=== PATIENT | female | born 1950 | race Caucasian/White ===

== ENCOUNTER → 2018-01-02 | Day surgery (SDC) | payer MEDICARE ==
[2017-12-28 11:42] VITALS: BMI 21.6
[~2018-01-02] MED LIST: DEXAMETHASONE SOD PHOSPHATE 10 MG/ML 1 ML VIAL IV ONE; LACTATED RINGERS 1,000 ML IV SCH; LIDOCAINE 1% 20 ML VIAL (10MG/ML) FOR IV START INTRADERMA PRN; LIDOCAINE 1% INJ 10MG/ML (20 ML MDV) ONE; LIDOCAINE 1%-EPI 1:100,000 20 ML VIAL SQ ONE; MIDAZOLAM 2 MG/2 ML VIAL IV PRN; MIDAZOLAM 2 MG/2 ML VIAL ONE; ONDANSETRON 4 MG/2 ML VIAL IVP ONE; PROPOFOL 10 MG/ML 20 ML VIAL IV ONE; SUCCINYLCHOLINE CHLORIDE 100 MG/5 ML SYR IV ONE; ceFAZolin 1,000 MG in DEXTROSE/WATER 1 50ML.BAG IV ONE; fentaNYL (PF) 50 MCG/ML 2 ML AMP IV PRN; fentaNYL (PF) 50 MCG/ML 2 ML AMP ONE; oxyCODONE-APAP 10-325MG 1 EACH TAB PO ONE
[2018-01-02] MEDS: HYDROmorphone 1 MG/ML 1 ML SYRINGE IVP ONE ×2 (13:51→15:57)
--- NOTE | 2018-01-02 15:25 | P.OP ---
Date of Procedure: 01/02/18 Preoperative Diagnosis: Right nasal defect secondary to previous Mohs surgery Postoperative Diagnosis: Same Procedure(s) Performed: Right nasofacial reconstruction with local advancement rotation flap reconstructionright nasofacial flap with primary defect 2.5 x 2.5 cm and secondary defect 2.5 x 4.3 cm Anesthesia: LENORE Surgeon: Prasanna Cox Estimated Blood Loss (ml): 5 Pathology: none sent Condition: stable Disposition: PACU Indications for Procedure: This 67-year-old white female who last week had Mohs surgery for basal cell carcinoma right nasal alar with reported negative margins. She has a defect that needs to be reconstructed. Operative Findings: Approximately 2.5 cm defect right nasal alar and medial right cheek down to the perichondrium which has mild granulation healing Description of Procedure: The patient was brought in the operative suite and placed in a supine position. The patient underwent induction of general anesthesia with oral endotracheal intubation without difficulty. The patient was prepped and draped in usual aseptic fashion. The wound was evaluated and it was elected to use a local flap reconstruction rather than full-thickness skin graft due to a better vascular supply with the patient's history of smoking and possibility that she would not participate with smoking cessation with the skin graft as well as a better thickness for reconstruction. Therefore a right nasal facial flap was designed with incision superior and lateral to the defect with the lateral incision being parallel to the nasolabial crease. This was raised in the subcutaneous fat layer down to the muscular layer with a thickness the same as the defect. This was then rotated and advanced into position. The deep portion of this was sutured into the nasal facial groove with 5-0 Vicryl suture in order to re-create this groove. The deep layers were then closed with inverted interrupted 5-0 Vicryl suture skin closed with simple interrupted and running locking 5-0 Prolene suture. Bacitracin ointment and sterile dressings were placed. The patient was allowed to emerge from general anesthesia having tolerated procedure well was excised in the operative suite and transferred postoperative recovery area in satisfactory condition. The flap had excellent vascular supply and excellent capillary refill at the conclusion of the case.
[2018-01-02 15:34] VITALS: TEMP 97
[2018-01-02 16:17] VITALS: RESP 18
[2018-01-02 16:55] VITALS: BP 151/88; PULSE 81
== END | disposition home or self-care (01) ==
LOC: OR 11:37
PROVIDERS: ATTEND Otolaryngology
DX: Z42.8 Encounter for other plastic and reconstructive surgery following medical procedure or healed injury (principal); Z85.828 Personal history of other malignant neoplasm of skin; M19.90 Unspecified osteoarthritis, unspecified site; J44.9 Chronic obstructive pulmonary disease, unspecified; M79.7 Fibromyalgia; F17.200 Nicotine dependence, unspecified, uncomplicated; Z90.2 Acquired absence of lung [part of]; Z79.1 Long term (current) use of non-steroidal anti-inflammatories (NSAID); Z79.891 Long term (current) use of opiate analgesic
CPT/HCPCS: 14060; J2250; J1100; J2405; J2001; J3010; J1170; J0690; J0330; J2704

== ENCOUNTER 2018-05-15 20:38 | Inpatient (IN) | payer MEDICARE ==
[2018-05-15] MEDS ORDERED: SODIUM CHLORIDE 0.9% 500 ML 500 ML IV STA (21:22)
[2018-05-15] MEDS ORDERED: SODIUM CHLORIDE 0.9% 1,000 ML IV ONE ×2 (21:28→23:58)
--- NOTE | 2018-05-15 21:28 | ED ---
General Adult HPI - General Chief complaint: Syncope Stated complaint: Syncope, fall, htn Time Seen by Provider: 05/15/18 20:40 Source: patient, EMS, RN notes reviewed Mode of arrival: EMS Limitations: no limitations - History of Present Illness Initial comments: This is a 68-year-old female presents emergency Department complaining of having passed out. Patient states she felt hot and dizzy after she stood up and went to her friend's house and she passed out she thinks but she doesn't remember it. According to EMS that his story that he received that she passed out and hit the right side of her head. Patient currently complains of a headache patient denies any neck pain denies any numbness or weakness. Patient states she still is dizzy. Patient denies any chest pain palpitations difficulty breathing shortness of breath per patient denies any upper extremity pain. Patient denies any lower cavity pain. Patient denies any back pain. Patient denies abdominal pain. Patient states she does not remember having ever passed out in the past - Related Data Home Medications Medication Instructions Recorded Confirmed Meloxicam [Mobic] 7.5 mg PO QAM 12/28/17 01/02/18 oxyCODONE-APAP 10-325MG [Percocet 1 tab PO Q12H PRN 12/28/17 01/02/18 10-325 mg] Allergies Allergy/AdvReac Type Severity Reaction Status Date / Time No Known Allergies Allergy Verified 01/02/18 12:51 Review of Systems ROS Statement: Those systems with pertinent positive or pertinent negative responses have been documented in the HPI. ROS Other: All systems not noted in ROS Statement are negative. Past Medical History Past Medical History: Cancer, COPD, Fibromyalgia, Musculoskeletal Disorder Additional Past Medical History / Comment(s): Current skin cancer on nose, hx stage 3 colon cancer and stage 4 lung cancer, scoliosis and degenerative disc disease with bulging discs in back, chronic pain. Hx broken neck that healed on it's own. History of Any Multi-Drug Resistant Organisms: None Reported Past Surgical History: Cholecystectomy, Orthopedic Surgery Additional Past Surgical History / Comment(s): Partial hysterectomy, right rotator cuff repair, left upper lobe of lung removed, bowel surgery due to cancer. Past Anesthesia/Blood Transfusion Reactions: No Reported Reaction Past Psychological History: No Psychological Hx Reported Smoking Status: Current every day smoker Past Alcohol Use History: None Reported Past Drug Use History: None Reported - Past Family History Father Family Medical History: Cancer Additional Family Medical History / Comment(s): Leukemia Brother(s) Family Medical History: Cancer Additional Family Medical History / Comment(s): Colon cancer General Exam - General Exam Comments Initial Comments: GENERAL: Patient is well-developed and well-nourished. Patient is nontoxic and well- hydrated and is in mild distress. Patient has some scalp tenderness in the right parietal region. No bleeding or hematoma noted ENT: Neck is soft and supple. No significant lymphadenopathy is noted. Oropharynx is clear. Dry mucous membranes. Neck has full range of motion without eliciting any pain. EYES: The sclera were anicteric and conjunctiva were pink and moist. Extraocular movements were intact and pupils were equal round and reactive to light. Eyelids were unremarkable. PULMONARY: Unlabored respirations. Good breath sounds bilaterally. No audible rales rhonchi or wheezing was noted. CARDIOVASCULAR: There is a regular rate and rhythm without any murmurs gallops or rubs. ABDOMEN: Soft and nontender with normal bowel sounds. No palpable organomegaly was noted. There is no palpable pulsatile mass. SKIN: Skin is clear with no lesions or rashes and otherwise unremarkable. NEUROLOGIC: Patient is alert and oriented x3. Cranial nerves II through XII are grossly intact. Motor and sensory are also intact. Normal speech, volume and content. Symmetrical smile. MUSCULOSKELETAL: Normal extremities with adequate strength and full range of motion. No lower extremity swelling or edema. No calf tenderness. LYMPHATICS: No significant lymphadenopathy is noted PSYCHIATRIC: Normal psychiatric evaluation. Limitations: no limitations Course Vital Signs 05/15/18 05/15/18 05/15/18 20:38 21:44 23:03 Temperature 97.5 F L Pulse Rate 62 60 61 Respiratory 16 16 16 Rate Blood Pressure 99/51 133/61 146/71 O2 Sat by Pulse 99 100 Oximetry Medical Decision Making - Medical Decision Making EKG shows sinus bradycardia 52 bpm [place] interval is 186 QRS is 86 QT interval is 466 QTC is 433. Patient's EKG shows no ST segment elevation or depression. CT of her head and neck show no acute abnormality. Patient was still feeling dizzy while she was in the emergency department did not feel comfortable going home. Spoke with Dr. Benjamin agreed to admit the patient admitted the patient. - Lab Data Result diagrams: 05/15/18 20:54 05/15/18 20:54 Lab Results 05/15/18 05/15/18 05/15/18 Range/Units 20:54 20:54 20:54 WBC 7.9 (3.8-10.6) k/uL RBC 3.71 L (3.80-5.40) m/uL Hgb 11.3 L (11.4-16.0) gm/dL Hct 34.8 (34.0-46.0) % MCV 93.8 (80.0-100.0) fL MCH 30.5 (25.0-35.0) pg MCHC 32.5 (31.0-37.0) g/dL RDW 12.9 (11.5-15.5) % Plt Count 295 (150-450) k/uL Neutrophils % 40 % Lymphocytes % 50 % Monocytes % 4 % Eosinophils % 3 % Basophils % 0 % Neutrophils # 3.1 (1.3-7.7) k/uL Lymphocytes # 4.0 (1.0-4.8) k/uL Monocytes # 0.3 (0-1.0) k/uL Eosinophils # 0.3 (0-0.7) k/uL Basophils # 0.0 (0-0.2) k/uL PT (9.0-12.0) sec INR (<1.2) APTT (22.0-30.0) sec Sodium 133 L (137-145) mmol/L Potassium 4.0 (3.5-5.1) mmol/L Chloride 105 (98-107) mmol/L Carbon Dioxide 24 (22-30) mmol/L Anion Gap 4 mmol/L BUN 16 (7-17) mg/dL Creatinine 0.92 (0.52-1.04) mg/dL Est GFR (CKD-EPI)AfAm 74 (>60 ml/min/1.73 sqM) Est GFR (CKD-EPI)NonAf 64 (>60 ml/min/1.73 sqM) Glucose 119 H (74-99) mg/dL Calcium 8.3 L (8.4-10.2) mg/dL Magnesium 2.0 (1.6-2.3) mg/dL Total Bilirubin 0.2 (0.2-1.3) mg/dL AST 29 (14-36) U/L ALT 37 (9-52) U/L Alkaline Phosphatase 38 (38-126) U/L Total Creatine Kinase 110 (30-135) U/L CK-MB (CK-2) 1.0 (0.0-2.4) ng/mL CK-MB (CK-2) Rel Index 0.9 Troponin I <0.012 (0.000-0.034) ng/mL Total Protein 6.0 L (6.3-8.2) g/dL Albumin 3.5 (3.5-5.0) g/dL 05/15/18 Range/Units 20:54 WBC (3.8-10.6) k/uL RBC (3.80-5.40) m/uL Hgb (11.4-16.0) gm/dL Hct (34.0-46.0) % MCV (80.0-100.0) fL MCH (25.0-35.0) pg MCHC (31.0-37.0) g/dL RDW (11.5-15.5) % Plt Count (150-450) k/uL Neutrophils % % Lymphocytes % % Monocytes % % Eosinophils % % Basophils % % Neutrophils # (1.3-7.7) k/uL Lymphocytes # (1.0-4.8) k/uL Monocytes # (0-1.0) k/uL Eosinophils # (0-0.7) k/uL Basophils # (0-0.2) k/uL PT 10.3 (9.0-12.0) sec INR 1.0 (<1.2) APTT 22.0 (22.0-30.0) sec Sodium (137-145) mmol/L Potassium (3.5-5.1) mmol/L Chloride (98-107) mmol/L Carbon Dioxide (22-30) mmol/L Anion Gap mmol/L BUN (7-17) mg/dL Creatinine (0.52-1.04) mg/dL Est GFR (CKD-EPI)AfAm (>60 ml/min/1.73 sqM) Est GFR (CKD-EPI)NonAf (>60 ml/min/1.73 sqM) Glucose (74-99) mg/dL Calcium (8.4-10.2) mg/dL Magnesium (1.6-2.3) mg/dL Total Bilirubin (0.2-1.3) mg/dL AST (14-36) U/L ALT (9-52) U/L Alkaline Phosphatase (38-126) U/L Total Creatine Kinase (30-135) U/L CK-MB (CK-2) (0.0-2.4) ng/mL CK-MB (CK-2) Rel Index Troponin I (0.000-0.034) ng/mL Total Protein (6.3-8.2) g/dL Albumin (3.5-5.0) g/dL Disposition Clinical Impression: Syncope and collapse, Dizziness Disposition: ADMITTED IP TO THIS HOSP Referrals: Best Blanton DO [Primary Care Provider] - 1-2 days Time of Disposition: 23:57
[2018-05-15 21:42] LABS: Basophils % (A) 0 %; Eosinophils # (A) 0.3 k/uL (0-0.7); Eosinophils % (A) 3 %; HCT 34.8 % (34.0-46.0); HGB 11.3 gm/dL (11.4-16.0); Lymphocytes % (A) 50 %; MCH 30.5 pg (25.0-35.0); MCHC 32.5 g/dL (31.0-37.0); MCV 93.8 fL (80.0-100.0); Mean Platelet Volume 7.6; Monocytes # (A) 0.3 k/uL (0-1.0); Monocytes % (A) 4 %; Neutrophils # (A) 3.1 k/uL (1.3-7.7); Neutrophils % (A) 40 %; Platelet Count 295 k/uL (150-450); RBC 3.71 m/uL (3.80-5.40); RDW 12.9 % (11.5-15.5); WBC 7.9 k/uL (3.8-10.6)
--- NOTE | 2018-05-15 21:50 | CT ---
EXAMINATION TYPE: CT brain maci ralph DATE OF EXAM: 05/15/2018 COMPARISON: None HISTORY: fall Headache. Neck pain. CT DLP: 1249.7 mGycm Automated exposure control for dose reduction was used. TECHNIQUE: CT scan of the head and cervical spine are performed without contrast. FINDINGS: Ventricles have normal size. There is no mass effect nor midline shift. There is no sign of intracranial hemorrhage. Calvarium is intact. The cervical vertebra have fairly normal alignment. There is mild spurring of the endplates. Skull base is intact. There is no evidence of a fracture. Facet joints are intact. Head is tilted sli ghtly to the left side. IMPRESSION: Negative CT scan of the brain. Mild spondylotic changes in the cervical spine. No fracture.
[2018-05-15 21:53] LABS: Albumin 3.5 g/dL (3.5-5.0); Calcium 8.3 mg/dL (8.4-10.2); Total Bilirubin 0.2 mg/dL (0.2-1.3)
[2018-05-15 21:54] LABS: Creatine Kinase 110 U/L (30-135)
[2018-05-15 22:00] LABS: Prothrombin Time 10.3 sec (9.0-12.0)
[2018-05-15 22:08] LABS: Troponin I <0.012 ng/mL (0.000-0.034)
--- NOTE | 2018-05-15 22:22 | XR ---
EXAMINATION TYPE: XR chest 2V DATE OF EXAM: 05/15/2018 COMPARISON: March 29, 2008 HISTORY: COPD. Chest pain TECHNIQUE: Frontal and lateral views of the chest are obtained. FINDINGS: There is no heart failure nor confluent pneumonic infiltrate. There is mild pulmonary hype rinflation. There is no pleural effusion. Bony thorax is intact. Thoracic aorta is atheromatous. IMPRESSION: There is probably COPD. No acute lung disease. No change.
[2018-05-15] MEDS ORDERED: IBUPROFEN 400 MG TAB PO STA (22:35)
[2018-05-16] MEDS ORDERED: ACETAMINOPHEN TAB 325 MG TAB PO STA (04:04)
[2018-05-16 06:34] VITALS: BMI 21.6
[2018-05-16] MEDS ORDERED: MELOXICAM 7.5 MG TAB PO SCH (09:15)
[2018-05-16] MEDS: oxyCODONE-APAP 10-325MG 1 EACH TAB PO PRN ×2 (09:25→17:23)
[2018-05-16 15:25] VITALS: BP 133/68; PULSE 68; RESP 18; TEMP 97.7
[2018-05-16] MEDS ORDERED: ENOXAPARIN 40 MG/0.4 ML SYRINGE SQ SCH (17:00)
[2018-05-16] MEDS ORDERED: NICOTINE 21MG/24HR PATCH TRANSDERM SCH (17:15)
--- NOTE | 2018-05-16 23:01 | DS ---
DISCHARGE SUMMARY HISTORY/PHYSICAL AND DISCHARGE SUMMARY: DATE OF ADMISSION: May 15, 2018. DATE OF DISCHARGE: May 16, 2018. DATE OF SERVICE: May 16, 2018. PRESENTING COMPLAINT: Passed out. HISTORY OF PRESENTING COMPLAINT: This is a very pleasant 68-year-old patient Dr. Blanton whose chronic stable medical conditions include COPD, fibromyalgia, osteoarthritis. The patient was very busy yesterday and she said she was excessively active. She did walk outside quite a bit and because it was cold out, said she was rather over dressed and then she was also going a lot of stuff inside and still was wearing heavy clothing and really became warm and suddenly she passed out bumping her head. There was no premonitory symptoms. There was no dizziness. No tongue biting. No urine incontinence. No shaking. There was no palpitation. The patient came right around. No arrhythmia has been noted. was found on telemetry. No chest pain, no palpitation. REVIEW OF SYSTEMS: CONSTITUTIONAL: None. HEENT some headache at the place where she bumped her head. RESPIRATORY: None. CARDIOVASCULAR: None. GASTROINTESTINAL: Denies. GENITOURINARY: None. MUSCULOSKELETAL: Arthritic pain in the joints, especially the back and joints. DERMATOLOGICAL, HEMATOLOGIC, LYMPHATIC: none. PSYCHIATRY none. NEUROLOGICAL: Nil focal. PAST MEDICAL HISTORY: COPD, fibromyalgia, herniated disc, osteoarthritis, metastatic colon cancer and colon surgery was done. Also had part of her lung removed, also had chemotherapy. This was all done in 2009. Also, skin cancer, history of broken cervical spine that healed on its own. PAST SURGICAL HISTORY: Left upper lobe lung removed, bowel surgery due to cancer, hysterectomy, orthopedic surgery, tubal ligation, partial hysterectomy. SOCIAL HISTORY: Smokes 2 packs a day for close to 42 years. Did stop smoking for about 12 years in the middle. No alcohol. Lives by herself. FAMILY HISTORY: Of leukemia. HOME MEDICATIONS: 1. Flonase 2 sprays each nostril daily. 2. Percocet 10 1 tab q.12h p.r.n. 3. Mobic 7.5 p.o. daily. ALLERGIES: None. PHYSICAL EXAMINATION: VITAL SIGNS: Temperature 97.7. Pulse 68, respiratory 18, blood pressure 133/68, pulse ox 98% on room air. GENERAL APPEARANCE: Average built, sitting up, comfortable. EYES: Pupils equal. Conjunctivae normal. HEENT: External appearance of nose and ears normal. Oral cavity normal. NECK: JVD not raised. Mass not palpable. RESPIRATORY: Effort normal. LUNGS are clear. CARDIOVASCULAR: 1st and 2nd sounds normal. No edema. ABDOMEN: Soft, nontender. Liver and spleen not palpable. LYMPHATICS: No lymph nodes palpable in the neck and axilla. PSYCHIATRY: Alert and oriented x3. Mood and affect normal. NEUROLOGICAL: Pupils equal. Cranial nerves grossly intact. Power and sensation grossly intact. MUSCULOSKELETAL: Evidence of osteoarthritis especially hands and knees. INVESTIGATIONS: White count 7.9, hemoglobin 11.3,potassium 4.0. BUN and creatinine is normal. Troponin negative. EKG tracing personally reviewed by me shows sinus rhythm. Head cervical spine CT negative. Chest x-ray shows some hyperinflation. Film was personally reviewed by me. ASSESSMENT: 1. This is a patient who was excessively active yesterday also was wearing warm clothing inside the house and this is most likely a vasovagal episode. Telemetry did not reveal any arrhythmia. The patient is feeling back to herself. Very keen to go home. 2. Chronic obstructive pulmonary disease in a current smoker. 3. Chronic fibromyalgia. 4. Primary osteoarthritis. 5. Chronic nicotine dependence. The patient is a cigarette smoker. PLAN: The patient has ambulated, up and about in the hallway, was doing well. Most likely vasovagal. The patient advised against smoking. Given a nicotine patch. DISCHARGE MEDICATION: Home medications to continue and patient is to take a nicotine patch. The patient should follow up with Dr. Blanton upon discharge. This is both a history physical and discharge summary. MMODL / IJN: [id number] /
== END 2018-05-16 18:41 | disposition home or self-care (01) | DRG 312 ==
LOC: EC 20:38 → 3SCARD 23:58
PROVIDERS: ADMIT Hospitalist; ATTEND Hospitalist
DX: R55 Syncope and collapse (principal); M41.9 Scoliosis, unspecified; J44.9 Chronic obstructive pulmonary disease, unspecified; R51 Headache; R42 Dizziness and giddiness; G89.29 Other chronic pain; R00.1 Bradycardia, unspecified; F17.210 Nicotine dependence, cigarettes, uncomplicated; I10 Essential (primary) hypertension; M19.91 Primary osteoarthritis, unspecified site; M79.7 Fibromyalgia; Z90.710 Acquired absence of both cervix and uterus; Z90.49 Acquired absence of other specified parts of digestive tract; C44.90 Unspecified malignant neoplasm of skin, unspecified; Z85.118 Personal history of other malignant neoplasm of bronchus and lung; Z85.038 Personal history of other malignant neoplasm of large intestine; Z79.1 Long term (current) use of non-steroidal anti-inflammatories (NSAID); Z98.51 Tubal ligation status; Z90.2 Acquired absence of lung [part of]; Z80.0 Family history of malignant neoplasm of digestive organs; Z80.6 Family history of leukemia; W19.XXXA Unspecified fall, initial encounter
CPT/HCPCS: 36415; 70450; 71046; 72125; 80053; 82550; 82553; 83735; 84484; 85025; 85610; 85730; 93005; 96360; 96361; 99285

== ENCOUNTER 2020-08-13 11:41 | Emergency (ER) | payer MEDICARE ==
[2020-08-13 11:53] VITALS: RESP 18; TEMP 98
--- NOTE | 2020-08-13 12:20 | ED ---
General Adult HPI - General Chief complaint: Extremity Problem,Nontraumatic Stated complaint: leg pain/swelling Time Seen by Provider: 08/13/20 12:13 Source: patient Mode of arrival: ambulatory Limitations: no limitations - History of Present Illness Initial comments: Patient presents the ED complaining of having bilateral lower leg pain for the past several months. Patient states that her pain has become worse over the last few days, and she states that her pain is now radiating up her legs. Patient states that she has "a bad back", but she denies having any back pain at this time. Patient describes her pain as "needles" and "sharp". Patient denies trauma or injury, leg swelling or redness, fever or chills, headache, focal numbness/weakness/neuro deficit, chest pain, dyspnea, palpitations, dizziness, abdominal pain, nausea/vomiting/diarrhea, dysuria or urinary symptoms, incontinence or urinary retention, or any other symptoms or complaints. Patient states that she has not diabetic. - Related Data Home Medications Medication Instructions Recorded Confirmed Acetaminophen Tab [Tylenol Tab] 1,000 mg PO Q6HR PRN 08/13/20 08/13/20 Calcium Carbonate [Calcium] 600 mg PO DAILY 08/13/20 08/13/20 Multivitamins, Thera [Multivitamin 1 tab PO DAILY 08/13/20 08/13/20 (formulary)] Allergies Allergy/AdvReac Type Severity Reaction Status Date / Time No Known Allergies Allergy Verified 08/13/20 12:56 Review of Systems ROS Statement: Those systems with pertinent positive or pertinent negative responses have been documented in the HPI. ROS Other: All systems not noted in ROS Statement are negative. Past Medical History Past Medical History: Cancer, COPD, Fibromyalgia, Musculoskeletal Disorder, Syncope Additional Past Medical History / Comment(s): Current skin cancer on nose, hx stage 3 colon cancer and stage 4 lung cancer, scoliosis and degenerative disc disease with bulging discs in back, chronic pain. Hx broken neck that healed on it's own. History of Any Multi-Drug Resistant Organisms: None Reported Past Surgical History: Bowel Resection, Hysterectomy, Orthopedic Surgery, Tubal Ligation Additional Past Surgical History / Comment(s): Partial hysterectomy, right rotator cuff repair, left upper lobe of lung removed, bowel surgery due to can cer. Past Anesthesia/Blood Transfusion Reactions: No Reported Reaction Past Psychological History: No Psychological Hx Reported Smoking Status: Current every day smoker Past Alcohol Use History: None Reported Past Drug Use History: None Reported - Past Family History Father Family Medical History: Cancer Additional Family Medical History / Comment(s): Leukemia Brother(s) Family Medical History: Cancer Additional Family Medical History / Comment(s): Colon cancer General Exam Limitations: no limitations General appearance: alert, in no apparent distress Head exam: Present: atraumatic, normocephalic Eye exam: Present: normal appearance, EOMI ENT exam: Present: mucous membranes moist Neck exam: Present: other (Trachea is in midline) Respiratory exam: Present: normal lung sounds bilaterally. Absent: respiratory distress, wheezes, rales, rhonchi, stridor Cardiovascular Exam: Present: regular rate, normal rhythm, normal heart sounds, other (Normal dorsalis pedis pulses bilaterally) GI/Abdominal exam: Present: soft. Absent: distended, tenderness, guarding Extremities exam: Present: full ROM, other (No swelling; patient reports having pain with just gentle touching of bilateral lower legs). Absent: pedal edema Back exam: Present: full ROM. Absent: tenderness Neurological exam: Present: alert, oriented X3, other (No evidence of lower extremity neurological deficit or saddle anesthesia is appreciated). Absent: motor sensory deficit Psychiatric exam: Present: anxious Skin exam: Present: warm, dry, intact, normal color Course Vital Signs 08/13/20 11:51 Temperature 98.0 F Pulse Rate 91 Respiratory 18 Rate Blood Pressure 153/72 O2 Sat by Pulse 100 Oximetry Medical Decision Making - Medical Decision Making Patient's labs and bilateral lower extremity venous duplex ultrasounds are fairly unremarkable. Given the patient's reported history and physical examination, I suspect that her symptoms/pain may be neuropathic in etiology. I have discussed neuropathic pain medication treatment options with the patient, and I have advised that she follow-up closely with her primary care provider to possibly initiate/manage such treatment. Will provide the patient with a Tylenol #3 starter pack in the ED for short-term pain management. Patient is aware of her test results, and she feels comfortable going home at this time. Patient was counseled about leg pain/neuropathic pain, and she was clearly explained return and follow-up instructions. Patient was instructed to have a low threshold for return to the ED should her symptoms worsen or should she develop new concerning symptoms. Patient was also instructed to, and agrees to, follow-up closely with her primary care provider. Patient feels comfortable with this plan. - Lab Data Result diagrams: 08/13/20 12:48 08/13/20 12:48 Lab Results 08/13/20 08/13/20 Range/Units 12:48 12:48 WBC 8.2 (3.8-10.6) k/uL RBC 4.39 (3.80-5.40) m/uL Hgb 14.0 (11.4-16.0) gm/dL Hct 40.4 (34.0-46.0) % MCV 92.0 (80.0-100.0) fL MCH 32.0 (25.0-35.0) pg MCHC 34.8 (31.0-37.0) g/dL RDW 12.3 (11.5-15.5) % Plt Count 376 (150-450) k/uL MPV 6.9 Neutrophils % 70 % Lymphocytes % 20 % Monocytes % 6 % Eosinophils % 2 % Basophils % 1 % Neutrophils # 5.8 (1.3-7.7) k/uL Lymphocytes # 1.7 (1.0-4.8) k/uL Monocytes # 0.5 (0-1.0) k/uL Eosinophils # 0.2 (0-0.7) k/uL Basophils # 0.1 (0-0.2) k/uL Sodium 136 L (137-145) mmol/L Potassium 4.4 (3.5-5.1) mmol/L Chloride 104 (98-107) mmol/L Carbon Dioxide 22 (22-30) mmol/L Anion Gap 10 mmol/L BUN 15 (7-17) mg/dL Creatinine 0.69 (0.52-1.04) mg/dL Est GFR (CKD-EPI)AfAm >90 (>60 ml/min/1.73 sqM) Est GFR (CKD-EPI)NonAf 89 (>60 ml/min/1.73 sqM) Glucose 90 (74-99) mg/dL Calcium 9.3 (8.4-10.2) mg/dL Total Bilirubin 0.7 (0.2-1.3) mg/dL AST 41 H (14-36) U/L ALT 27 (4-34) U/L Alkaline Phosphatase 57 (38-126) U/L Creatine Kinase 114 (30-135) U/L Total Protein 7.8 (6.3-8.2) g/dL Albumin 4.7 (3.5-5.0) g/dL - Radiology Data Radiology results: report reviewed (Bilateral lower extremity venous duplex ultrasounds are negative for DVT) Disposition Clinical Impression: Bilateral leg pain Disposition: HOME SELF-CARE Condition: Stable Instructions (If sedation given, give patient instructions): Peripheral [place] ropathy (ED), Leg Pain (ED) Additional Instructions: Return to the ER immediately should you develop new or worsening pain, leg swelling, a fever, chest pain, shortness of breath, feeling dizzy or faint, or new or worsening symptoms. Follow up closely with your primary care provider. Is patient prescribed a controlled substance at d/c from ED?: No Referrals: Best Blanton DO [Primary Care Provider] - 1-2 days Time of Disposition: 13:41
[2020-08-13] MEDS ORDERED: Acetaminophen-Codeine 300-30mg TAB PO STA (12:32)
[2020-08-13 13:02] LABS: Basophils # (A) 0.1 k/uL (0-0.2); Basophils % (A) 1 %; Eosinophils # (A) 0.2 k/uL (0-0.7); Eosinophils % (A) 2 %; HCT 40.4 % (34.0-46.0); Lymphocytes # (A) 1.7 k/uL (1.0-4.8); Lymphocytes % (A) 20 %; MCHC 34.8 g/dL (31.0-37.0); Mean Platelet Volume 6.9; Monocytes # (A) 0.5 k/uL (0-1.0); Monocytes % (A) 6 %; Neutrophils # (A) 5.8 k/uL (1.3-7.7); Neutrophils % (A) 70 %; Platelet Count 376 k/uL (150-450); RBC 4.39 m/uL (3.80-5.40); RDW 12.3 % (11.5-15.5); WBC 8.2 k/uL (3.8-10.6)
[2020-08-13 13:18] LABS: ALT 27 U/L (4-34); AST 41 U/L (14-36); African American GFR (CKD) >90 (>60 ml/min/1.73 sqM); Albumin 4.7 g/dL (3.5-5.0); Alkaline Phosphatase 57 U/L (38-126); Anion Gap 10 mmol/L; Blood Urea Nitrogen 15 mg/dL (7-17); Calcium 9.3 mg/dL (8.4-10.2); Carbon Dioxide 22 mmol/L (22-30); Chloride 104 mmol/L (98-107); Creatine Kinase 114 U/L (30-135); Glucose 90 mg/dL (74-99); Non-African American GFR(CKD) 89 (>60 ml/min/1.73 sqM); Potassium 4.4 mmol/L (3.5-5.1); Sodium 136 mmol/L (137-145); Total Bilirubin 0.7 mg/dL (0.2-1.3); Total Protein 7.8 g/dL (6.3-8.2)
--- NOTE | 2020-08-13 13:23 | US ---
EXAMINATION TYPE: US venous doppler duplex LE DATE OF EXAM: 08/13/2020 1:14 PM COMPARISON: NONE CLINICAL HISTORY: Bilateral lower leg pain, R/O DVT. No redness. No swelling. Leg pain x few months . SIDE PERFORMED: Bilateral TECHNIQUE: The lower extremity deep venous system is examined utilizing real time linear array sonog jaxson with graded compression, doppler sonography and color-flow sonography. VESSELS IMAGED: Common Femoral Vein Deep Femoral Vein Greater Saphenous Vein * Femoral Vein Popliteal Vein Small Saphenous Vein * Proximal Calf Veins (* superficial vessels) Right Leg: Negative for DVT Left Leg: Negative for DVT Grayscale, color doppler, spectral doppler imaging performed of the deep veins of the bilateral lower extremities. There is normal flow, compressibility, vascular waveforms. IMPRESSION: No ultrasound evidence for acute DVT in either lower extremity.
[2020-08-13] MEDS ORDERED: ACET/COD 300 MG/30 MG STARTER PACK 6 TAB BTL PO STA (13:41)
[2020-08-13 14:09] VITALS: BP 139/70; PULSE 78
== END 2020-08-13 14:08 | disposition home or self-care (01) ==
LOC: EC 11:41
DX: M79.661 Pain in right lower leg (principal); M79.662 Pain in left lower leg; F17.200 Nicotine dependence, unspecified, uncomplicated; J44.9 Chronic obstructive pulmonary disease, unspecified; Z85.038 Personal history of other malignant neoplasm of large intestine; Z85.828 Personal history of other malignant neoplasm of skin; Z85.118 Personal history of other malignant neoplasm of bronchus and lung
CPT/HCPCS: 36415; 80053; 82550; 85025; 93970; 99284

== ENCOUNTER 2023-03-11 13:57 | Emergency (ER) | payer MEDICARE ==
[2023-03-11 14:05] VITALS: TEMP 97.6
[2023-03-11] MEDS ORDERED: HYDROmorphone 1 MG/ML 1 ML SYRINGE IVP STA ×2 (14:26→17:29)
[2023-03-11] MEDS ORDERED: SODIUM CHLORIDE 0.9% 1,000 ML IV STA (14:26)
--- NOTE | 2023-03-11 14:30 | ED ---
General Adult HPI - General Source: patient, RN notes reviewed Mode of arrival: ambulatory Limitations: no limitations <Eladio Simpson - Last Filed: 03/11/23 14:28> <Christiano Reyna - Last Filed: 03/11/23 17:41> - General Chief complaint: Abdominal Pain Stated complaint: UTI Time Seen by Provider: 03/11/23 14:03 - History of Present Illness Initial comments: Patient is a pleasant 73-year-old female presenting to the emergency department with concern for urinary tract infection. Patient states it is been going on for a couple of weeks. Patient was on a cephalosporin followed by Macrobid and Pyridium. Patient does have chronic pain. Patient is having discomfort in the bladder region with dysuria. Patient has urinary urgency. (Eladio Simpson) - Related Data Home Medications Medication Instructions Recorded Confirmed Multivitamins, Thera [Multivitamin 1 tab PO HS 08/13/20 02/15/23 (formulary)] Albuterol Sulfate [Ventolin HFA] 2 puff INHALATION RT-Q6H PRN 08/04/22 02/15/23 Calcium Carbonate/Vitamin D3 1 tab PO HS 08/04/22 02/15/23 [Calcium 600-Vit D3 5 Mcg (200 Iu)] Pregabalin [Lyrica] 50 mg PO QID 08/04/22 02/15/23 oxyCODONE-APAP 7.5-325MG [Percocet 1 tab PO TID 08/04/22 02/15/23 7.5-325 mg] lisinopriL [Zestril] 5 mg PO HS 02/15/23 02/15/23 Aspirin 81 mg PO DAILY 02/16/23 02/16/23 Previous Rx's Medication Instructions Recorded Nicotine 14Mg/24Hr Patch [Habitrol] 1 patch TRANSDERM DAILY #30 patch 02/16/23 Allergies Allergy/AdvReac Type Severity Reaction Status Date / Time No Known Allergies Allergy Verified 03/11/23 14:02 Review of Systems ROS Other: All systems not noted in ROS Statement are negative. Constitutional: Denies: fever Eyes: Denies: eye pain ENT: Denies: ear pain Respiratory: Denies: cough Gastrointestinal: Reports: as per HPI, abdominal pain. Denies: vomiting Genitourinary: Reports: as per HPI Skin: Denies: rash Neurological: Denies: weakness <Eladio Simpson - Last Filed: 03/11/23 14:28> ROS Other: All systems not noted in ROS Statement are negative. <Christiano Reyna - Last Filed: 03/11/23 17:41> ROS Statement: Those systems with pertinent positive or pertinent negative responses have been documented in the HPI. Past Medical History Past Medical History: Cancer, COPD, Fibromyalgia, Musculoskeletal Disorder, Syncope Additional Past Medical History / Comment(s): Current skin cancer on nose, hx stage 3 colon cancer and stage 4 lung cancer, scoliosis and degenerative disc disease with bulging discs in back, chronic pain. Hx broken neck that healed on it's own. 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 sinus sx x2. chemo port removed. left breast tumor bx Past Anesthesia/Blood Transfusion Reactions: No Reported Reaction Past Psychological History: No Psychological Hx Reported Smoking Status: Current every day smoker Past Alcohol Use History: Occasional Past Drug Use History: Marijuana - Past Family History Father Family Medical History: Cancer Additional Family Medical History / Comment(s): Leukemia Brother(s) Family Medical History: Cancer Additional Family Medical History / Comment(s): Colon cancer <Eladio Simpson - Last Filed: 03/11/23 14:28> General Exam Limitations: no limitations General appearance: alert Eye exam: Present: normal appearance Respiratory exam: Present: normal lung sounds bilaterally Cardiovascular Exam: Present: regular rate, normal rhythm GI/Abdominal exam: Present: soft, tenderness (Mild suprapubic tenderness to palpation) Extremities exam: Present: normal inspection Neurological exam: Present: alert Psychiatric exam: Present: normal affect, normal mood Skin exam: Present: normal color <Eladio Simpson - Last Filed: 03/11/23 14:28> Course <Christiano Reyna - Last Filed: 03/11/23 17:41> Vital Signs 03/11/23 13:59 Temperature 97.6 F Pulse Rate 79 Respiratory 18 Rate Blood Pressure 162/75 O2 Sat by Pulse 96 Oximetry - Reevaluation(s) Reevaluation #1: 03/11/23 17:31 Patient states that her pain has improved with ED treatment, but is starting to come back at this time. She is requesting another dose of pain medication at this time. Patient and [id number] are aware the patient's test results/CT findings. Patient reports that her suprapubic pain is spasmodic in nature, and she states that she has been having dysuria as well. Patient is currently on a course of Macrobid, and she is also taking Pyridium and oxycodone for her pain. I have explained to the patient that her labs, including UA, are fairly unremarkable. I have explained to her that her CT shows findings of constipation, but is otherwise fairly unremarkable. Patient states "I am always constipated and that is not what is causing my pain". I have recommended that she follow up with urology given her continued bladder concerns and dysuria. Patient and [id number] were counseled about abdominal pain and dysuria, and they were clearly explained return and follow-up instructions. They both feel comfortable with the patient being discharged home at this time. They were instructed to have the patient follow up closely with urology. Patient was also instructed to complete the course of Macrobid that she is currently taking. (Christiano Reyna) Medical Decision Making - Lab Data Result diagrams: 03/11/23 14:55 03/11/23 14:55 <Christiano Reyna - Last Filed: 03/11/23 17:41> - Medical Decision Making Was pt. sent in by a medical professional or institution (, PA, CRAFT RECRUITER, urgent care, hospital, or fpc...) When possible be specific @ -No Did you speak to anyone other than the patient for history (EMS, parent, family, police, friend...)? What history was obtained from this source @ -No Did you review nursing and triage notes (agree or disagree)? Why? @ -I reviewed and agree with nursing and triage notes Were old charts reviewed (outside hosp., previous admission, EMS record, old EKG, old radiological studies, urgent care reports/EKG's, fpc records)? Report findings @ -No old charts were reviewed Differential Diagnosis (chest pain, altered mental status, abdominal pain women, abdominal pain men, vaginal bleeding, weakness, fever, dyspnea, syncope, headache, dizziness, GI bleed, back pain, seizure, CVA, palpatations, mental health, musculoskeletal)? @ -Differential Abdominal Pain Women: Appendicitis, cholecystitis, diverticulitis, ischemic bowel, pancreatitis, hepatitis, UTI, gastroenteritis, AAA, incarcerated hernia, bowel obstruction, constipation, inflammatory bowel, peptic ulcer disease, perforated viscus, kidney stone, bladder spasms, this is not meant to be an all-inclusive list EKG interpreted by me (3pts min.). @ -None done X-rays interpreted by me (1pt min.). @ -None done CT interpreted by me (1pt min.). @ -Patient's CT abdomen/pelvis with IV contrast was reviewed myself and shows findings consistent with constipation. I agree with the radiologist's interpretation as above. U/S interpreted by me (1pt. min.). @ -None done What testing was considered but not performed or refused? (CT, X-rays, U/S, labs)? Why? @ -None What meds were considered but not given or refused? Why? @ -None Did you discuss the management of the patient with other professionals (professionals i.e. , PA, CRAFT RECRUITER, lab, RT, psych nurse, director of social media marketing, wheat grower, teacher, chief administrative officer, case finishing machine adjuster)? Give summary @ -No Was smoking cessation discussed for >3mins.? @ -No Was critical care preformed (if so, how long)? @ -No Were there social determinants of health that impacted care today? How? (Home lessness, low income, unemployed, alcoholism, drug addiction, transportation, low edu. Level, literacy, decrease access to med. care, care home, rehab)? @ -No Was there de-escalation of care discussed even if they declined (Discuss DNR or withdrawal of care, Hospice)? DNR status @ -No What co-morbidities impacted this encounter? (DM, HTN, Smoking, COPD, CAD, Cancer, CVA, ARF, Chemo, Hep., AIDS, mental health diagnosis, sleep apnea, morbid obesity)? @ -None Was patient admitted / discharged? Hospital course, mention meds given and route, prescriptions, significant lab abnormalities, going to OR and other pertinent info. @ -Patient was initially seen and evaluated by Dr. Simpson in the ED, and he ordered ED testing on the patient. Patient was endorsed to me by Dr. Simpson (secondary to shift change) with the patient's CT abdomen/pelvis still pending. I have reviewed the patient's lab results and CT report. Patient's labs and CT are fairly unremarkable. Patient's CT shows findings consistent with constipation. Patient's LFTs and lipase are within normal limits. Patient is afebrile and without leukocytosis. Patient has a soft and nonsurgical abdominal exam. I do not suspect an emergent medical or surgical condition at this time. Patient's UA is fairly unremarkable. Patient is currently on a course of Macrobid and experiencing symptoms of bladder spasms and dysuria. Patient is currently being treated with oxycodone and Pyridium as well. Patient's pain has been managed while in the ED. I have recommended that the patient follow up closely with urology given her continued urinary/bladder symptoms. Patient and [id number] feel comfortable with this plan. Will discharge patient home with her [id number] at this time. Undiagnosed new problem with uncertain prognosis? @ -No Drug Therapy requiring intensive monitoring for toxicity (Heparin, Nitro, Insulin, Cardizem)? @ -No Were any procedures done? @ -No Diagnosis/symptom? @ -Suprapubic abdominal pain and dysuria] Acute, or Chronic, or Acute on Chronic? @ -default Uncomplicated (without systemic symptoms) or Complicated (systemic symptoms)? @ -default Side effects of treatment? @ -No Exacerbation, Progression, or Severe Exacerbation? @ -No Poses a threat to life or bodily function? How? (Chest pain, USA, PA, pneumonia, PE, COPD, DKA, ARF, appy, cholecystitis, CVA, Diverticulitis, Homicidal, Suicidal, threat to staff... and all critical care pts) @ -No (Christiano Reyna) - Lab Data Lab Results 03/11/23 03/11/23 03/11/23 Range/Units 14:55 14:55 14:55 WBC 7.5 (3.8-10.6) k/uL RBC 3.84 (3.80-5.40) m/uL Hgb 12.1 (11.4-16.0) gm/dL Hct 36.6 (34.0-46.0) % MCV 95.4 (80.0-100.0) fL MCH 31.6 (25.0-35.0) pg MCHC 33.1 (31.0-37.0) g/dL RDW 12.1 (11.5-15.5) % Plt Count 327 (150-450) k/uL MPV 8.2 Neutrophils % 65 % Lymphocytes % 27 % Monocytes % 5 % Eosinophils % 1 % Basophils % 0 % Neutrophils # 4.9 (1.3-7.7) k/uL Lymphocytes # 2.0 (1.0-4.8) k/uL Monocytes # 0.4 (0-1.0) k/uL Eosinophils # 0.1 (0-0.7) k/uL Basophils # 0.0 (0-0.2) k/uL PT 10.6 (10.0-12.5) sec INR 1.0 (<1.2) APTT 22.9 (22.0-30.0) sec Sodium (137-145) mmol/L Potassium (3.5-5.1) mmol/L Chloride (98-107) mmol/L Carbon Dioxide (22-30) mmol/L Anion Gap mmol/L BUN (7-17) mg/dL Creatinine (0.52-1.04) mg/dL Est GFR (CKD-EPI)AfAm (>60 ml/min/1.73 sqM) Est GFR (CKD-EPI)NonAf (>60 ml/min/1.73 sqM) Glucose (74-99) mg/dL Calcium (8.4-10.2) mg/dL Total Bilirubin (0.2-1.3) mg/dL AST (14-36) U/L ALT (4-34) U/L Alkaline Phosphatase (38-126) U/L Total Protein (6.3-8.2) g/dL Albumin (3.5-5.0) g/dL Amylase (30-110) U/L Lipase (23-300) U/L Urine Color Dark Brown Urine Appearance Clear (Clear) Urine pH 6.5 (5.0-8.0) Ur Specific [place] 1.007 (1.001-1.035) Urine Protein Negative (Negative) Urine Glucose (UA) Negative (Negative) Urine Ketones Negative (Negative) Urine Blood Negative (Negative) Urine Nitrite Positive H (Negative) Urine Bilirubin 1+ H (Negative) Urine Urobilinogen 3.0 (<2.0) mg/dL Ur Leukocyte Esterase Negative (Negative) Urine WBC <1 (0-5) /hpf 03/11/23 Range/Units 14:55 WBC (3.8-10.6) k/uL RBC (3.80-5.40) m/uL Hgb (11.4-16.0) gm/dL Hct (34.0-46.0) % MCV (80.0-100.0) fL MCH (25.0-35.0) pg MCHC (31.0-37.0) g/dL RDW (11.5-15.5) % Plt Count (150-450) k/uL MPV Neutrophils % % Lymphocytes % % Monocytes % % Eosinophils % % Basophils % % Neutrophils # (1.3-7.7) k/uL Lymphocytes # (1.0-4.8) k/uL Monocytes # (0-1.0) k/uL Eosinophils # (0-0.7) k/uL Basophils # (0-0.2) k/uL PT (10.0-12.5) sec INR (<1.2) APTT (22.0-30.0) sec Sodium 135 L (137-145) mmol/L Potassium 4.8 (3.5-5.1) mmol/L Chloride 103 (98-107) mmol/L Carbon Dioxide 23 (22-30) mmol/L Anion Gap 9 mmol/L BUN 16 (7-17) mg/dL Creatinine 0.53 (0.52-1.04) mg/dL Est GFR (CKD-EPI)AfAm >90 (>60 ml/min/1.73 sqM) Est GFR (CKD-EPI)NonAf >90 (>60 ml/min/1.73 sqM) Glucose 78 (74-99) mg/dL Calcium 9.3 (8.4-10.2) mg/dL Total Bilirubin 0.6 (0.2-1.3) mg/dL AST 26 (14-36) U/L ALT 18 (4-34) U/L Alkaline Phosphatase 38 (38-126) U/L Total Protein 7.0 (6.3-8.2) g/dL Albumin 4.3 (3.5-5.0) g/dL Amylase 53 (30-110) U/L Lipase 134 (23-300) U/L Urine Color Urine Appearance (Clear) Urine pH (5.0-8.0) Ur Specific [place] (1.001-1.035) Urine Protein (Negative) Urine Glucose (UA) (Negative) Urine Ketones (Negative) Urine Blood (Negative) Urine Nitrite (Negative) Urine Bilirubin (Negative) Urine Urobilinogen (<2.0) mg/dL Ur Leukocyte Esterase (Negative) Urine WBC (0-5) /hpf - Radiology Data CT abdomen/pelvis with IV contrast: 1. Moderate to large amount of stool throughout the colon, correlate for constipation. 2. Mildly prominent CBD and pancreatic duct, may be age-related however clinical correlation with LFTs may be of benefit. 3. Other chronic and likely incidental findings, as described above. (Christiano Paulino) Disposition <Eladio Simpson - Last Filed: 03/11/23 14:28> Is patient prescribed a controlled substance at d/c from ED?: No Time of Disposition: 17:41 <Christiano Reyna - Last Filed: 03/11/23 17:41> Clinical Impression: Abdominal pain, Dysuria Disposition: HOME SELF-CARE Condition: Stable Instructions (If sedation given, give patient instructions): Abdominal Pain (ED), Dysuria (ED), Constipation (ED) Additional Instructions: Return to the ER immediately should you develop new or worsening pain, a fever, vomiting, shortness of breath, feeling dizzy or faint, or new or worsening symptoms. Follow up closely with your primary care provider, as well as a ur ologist. Referrals: Best Blanton DO [Primary Care Provider] - 1-2 days Ankush Howard MD [STAFF PHYSICIAN] - 1-2 days
[2023-03-11 15:09] LABS: Basophils % (A) 0 %; Eosinophils # (A) 0.1 k/uL (0-0.7); Eosinophils % (A) 1 %; HCT 36.6 % (34.0-46.0); HGB 12.1 gm/dL (11.4-16.0); Lymphocytes % (A) 27 %; MCH 31.6 pg (25.0-35.0); MCHC 33.1 g/dL (31.0-37.0); MCV 95.4 fL (80.0-100.0); Mean Platelet Volume 8.2; Monocytes # (A) 0.4 k/uL (0-1.0); Monocytes % (A) 5 %; Neutrophils # (A) 4.9 k/uL (1.3-7.7); Neutrophils % (A) 65 %; Platelet Count 327 k/uL (150-450); RBC 3.84 m/uL (3.80-5.40); RDW 12.1 % (11.5-15.5); WBC 7.5 k/uL (3.8-10.6)
[2023-03-11 15:19] LABS: ALT 18 U/L (4-34); AST 26 U/L (14-36); African American GFR (CKD) >90 (>60 ml/min/1.73 sqM); Albumin 4.3 g/dL (3.5-5.0); Alkaline Phosphatase 38 U/L (38-126); Amylase 53 U/L (30-110); Anion Gap 9 mmol/L; Blood Urea Nitrogen 16 mg/dL (7-17); Calcium 9.3 mg/dL (8.4-10.2); Carbon Dioxide 23 mmol/L (22-30); Chloride 103 mmol/L (98-107); Glucose 78 mg/dL (74-99); Lipase 134 U/L (23-300); Non-African American GFR(CKD) >90 (>60 ml/min/1.73 sqM); Partial Thromboplastin Time 22.9 sec (22.0-30.0); Potassium 4.8 mmol/L (3.5-5.1); Prothrombin Time 10.6 sec (10.0-12.5); Sodium 135 mmol/L (137-145); Total Bilirubin 0.6 mg/dL (0.2-1.3)
[2023-03-11 16:31] LABS: Appearance,Urine Clear (Clear); Bilirubin,Urine 1+ (Negative); Blood,Urine Negative (Negative); Color,Urine Dark Brown; Glucose,Urine (UA) Negative (Negative); Ketones,Urine Negative (Negative); Leukocyte Esterase,Urine Negative (Negative); Nitrite,Urine Positive (Negative); PH, Urine 6.5 (5.0-8.0); Protein,Urine Negative (Negative); Specific Gravity,Urine 1.007 (1.001-1.035); WBC,Urine <1 /hpf (0-5)
--- NOTE | 2023-03-11 17:02 | CT ---
EXAMINATION TYPE: CT abdomen pelvis w con CT DLP: 424.7 mGycm, Automated exposure control for dose reduction was used. DATE OF EXAM: 03/11/2023 4:07 PM COMPARISON: None. CLINICAL INDICATION:Female, 73 years old with history of abdominal pain; Abdominal pain TECHNIQUE: Axial CT of the abdomen and pelvis. Sagittal and coronal reformats were created on a [employer] workstation. Contrast used:100 ml mL of Isovue 370 with IV Contrast, (none if empty) Oral contrast used: without Oral Contrast (none if empty) FINDINGS: LOWER CHEST: Unremarkable ABDOMEN LIVER: Small foci of subcapsular enhancement images 22 and 25, may represent hemangiomas. GALLBLADDER AND BILE DUCTS: Gallbladder is not distended. Mildly prominent CBD measures up to 7.7 mm. Mildly prominent pancreatic duct at 2.5 mm. PANCREAS: Unremarkable. SPLEEN: Unremarkable. ADRENAL GLANDS: Unremarkable. KIDNEYS AND URETERS: Kidneys enhance symmetrically. No hydronephrosis. Small nodular hypodensity in the lower pole of the left kidney, not fully characterized but has the appearance of a cyst. PELVIS BLADDER: Unremarkable REPRODUCTIVE: Uterus likely absent or atrophic. ABDOMEN & PELVIS STOMACH AND BOWEL: Nondistended stomach and small bowel. No evidence of obstruction. Moderate to larg e amount of stool throughout the colon. Anastomosis suggested in the rectosigmoid region. Appendix is not identified with certainty, however there is no inflammatory process seen in the RLQ. PERITONEUM/RETROPERITONEUM: No evidence of pneumoperitoneum or free fluid. VASCULATURE: Moderate mixed atherosclerotic disease throughout the abdominal aorta and branches. Mild stenosis of the proximal SMA and left renal artery. Mild stenosis of the proximal left common iliac artery. No evidence of AAA. MUSCULOSKELETAL: No evidence of an acute bony abnormality. L5 partially sacralized on the right. Mild diffuse degenerative changes. LYMPH NODES: No gross evidence for lymphadenopathy. SOFT TISSUE/ABDOMINAL WALL: No acute abnormality. IMPRESSION: 1. Moderate to large amount of stool throughout the colon, correlate for constipation. 2. Mildly prominent CBD and pancreatic duct, may be age-related however clinical correlation with LF Ts may be of benefit. 3. Other chronic and likely incidental findings, as described above.
[2023-03-11 18:17] VITALS: BP 143/88; PULSE 70; RESP 20
== END 2023-03-11 18:14 | disposition home or self-care (01) ==
LOC: EC 13:57
DX: K59.00 Constipation, unspecified (principal); R30.0 Dysuria; J44.9 Chronic obstructive pulmonary disease, unspecified; F17.200 Nicotine dependence, unspecified, uncomplicated; F12.90 Cannabis use, unspecified, uncomplicated; Z79.82 Long term (current) use of aspirin; Z79.899 Other long term (current) drug therapy
CPT/HCPCS: 36415; 80053; 82150; 83690; 85025; 85610; 85730; 81001; 74177; 99284; 96374; 96376; 96361 ×3; J1170; Q9967

== ENCOUNTER 2023-04-26 18:13 | Emergency (ER) | payer MEDICARE ==
[2023-04-26 19:53] VITALS: RESP 18
--- NOTE | 2023-04-26 20:09 | ED ---
General Adult HPI - General Source: patient, RN notes reviewed, old records reviewed Mode of arrival: EMS Limitations: no limitations <Eyad Craven - Last Filed: 04/26/23 20:07> <Bashir Melo - Last Filed: 04/27/23 06:31> - General Chief complaint: Abdominal Pain Stated complaint: General Pain - History of Present Illness Initial comments: 73-year-old female presenting for evaluation of dysuria, bladder spasm. Patient has history of recent UTI. She states she has been dealing with these symptoms although they have worsened over the past 24 hours. She reports generalized muscle cramping in both of her legs as well. She denies measured fever. Denies chest pain or dyspnea. States the pain has worsened over the past 24 hours, it has been intermittent over the past several weeks. (Eyad Craven) Patient is a 73-year-old female who was originally evaluated as a quick note. Has a history of recurrent UTIs as well as bladder spasms. Has not followed up with her specialist. Pain is worsening over the last 24 hours but has been intermittent over the last several weeks. Is concerned she may have a UTI. At that the pain contract. No nausea or vomiting. No chest pain. Has a history of anemia. No other acute complaints at this time. He is requesting pain meds. I evaluated the patient and she was placed in a room. (Bashir Melo) - Related Data Home Medications Medication Instructions Recorded Confirmed Multivitamins, Thera [Multivitamin 1 tab PO HS 08/13/20 02/15/23 (formulary)] Albuterol Sulfate [Ventolin HFA] 2 puff INHALATION RT-Q6H PRN 08/04/22 02/15/23 Calcium Carbonate/Vitamin D3 1 tab PO HS 08/04/22 02/15/23 [Calcium 600-Vit D3 5 Mcg (200 Iu)] Pregabalin [Lyrica] 50 mg PO QID 08/04/22 02/15/23 oxyCODONE-APAP 7.5-325MG [Percocet 1 tab PO TID 08/04/22 02/15/23 7.5-325 mg] lisinopriL [Zestril] 5 mg PO HS 02/15/23 02/15/23 Aspirin 81 mg PO DAILY 02/16/23 02/16/23 Previous Rx's Medication Instructions Recorded Nicotine 14Mg/24Hr Patch [Habitrol] 1 patch TRANSDERM DAILY #30 patch 02/16/23 Sulfamethox-Tmp 800-160Mg [Bactrim 1 tab PO Q12HR 7 Days #14 tab 04/26/23 DS 800-160 mg] Allergies Allergy/AdvReac Type Severity Reaction Status Date / Time No Known Allergies Allergy Verified 03/11/23 14:02 Review of Systems ROS Other: All systems not noted in ROS Statement are negative. <Eyad Craven - Last Filed: 04/26/23 20:07> ROS Other: All systems not noted in ROS Statement are negative. <Bashir Melo - Last Filed: 04/27/23 06:31> ROS Statement: Those systems with pertinent positive or pertinent negative responses have been documented in the HPI. Review of Systems: CONST: Denies fever EYES: Denies blurry vision ENT: Denies nasal congestion C/V: Denies Chest pain RESP: Denies shortness of breath GI: Endorses bladder spasms : Denies dysuria SKIN: Denies rash. MSK: Denies joint pain. NEURO: Denies headache (Bashir Melo) Past Medical History Past Medical History: Cancer, COPD, Fibromyalgia, Musculoskeletal Disorder, Syncope Additional Past Medical History / Comment(s): Current skin cancer on nose, hx stage 3 colon cancer and stage 4 lung cancer, scoliosis and degenerative disc disease with bulging discs in back, chronic pain. Hx broken neck that healed on it's own. 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 sinus sx x2. chemo port removed. left breast tumor bx Past Anesthesia/Blood Transfusion Reactions: No Reported Reaction Past Psychological History: No Psychological Hx Reported Smoking Status: Current every day smoker Past Alcohol Use History: Occasional Past Drug Use History: Marijuana - Past Family History Father Family Medical History: Cancer Additional Family Medical History / Comment(s): Leukemia Brother(s) Family Medical History: Cancer Additional Family Medical History / Comment(s): Colon cancer <Eyad Craven - Last Filed: 04/26/23 20:07> General Exam Limitations: no limitations General appearance: alert, in no apparent distress Head exam: Present: atraumatic, normocephalic Eye exam: Present: normal appearance, PERRL Neck exam: Present: normal inspection Respiratory exam: Absent: respiratory distress, wheezes Neurological exam: Present: alert Skin exam: Absent: cyanosis, diaphoretic <Eyad Craven Rashida - Last Filed: 04/26/23 20:07> <Bashir Melo - Last Filed: 04/27/23 06:31> - General Exam Comments Initial Comments: General: Appears in no acute distress. HEAD: Normal with no signs of head trauma. EYES: PERRLA, EOMI, conjunctiva normal, no discharge. ENT: Hearing grossly intact, normal oropharynx. RESPIRATORY: Clear breath sounds bilaterally. No wheezes, rales, or rhonchi. C/V: Regular rate and rhythm. S1 and S2 auscultated, no edema, peripheral pulses 2+ and intact throughout ABD: Abdomen is soft, nondistended. Tender to palpation in the suprapubic region. EXT: Normal range of motion, no obvious deformity SKIN: No rashes or lesions observed on exposed skin. No rash, however patient's situation that she does itch NEURO: Alert and oriented 4. (Bashir Melo) Course Vital Signs 04/26/23 04/26/23 19:35 23:17 Temperature 97.1 F L 98.2 F Pulse Rate 88 60 Respiratory 18 18 Rate Blood Pressure 134/64 128/64 O2 Sat by Pulse 93 L 97 Oximetry Medical Decision Making - Lab Data Result diagrams: 04/26/23 20:55 04/26/23 20:55 <Bashir Melo - Last Filed: 04/27/23 06:31> - Medical Decision Making Was pt. sent in by a medical professional or institution (, PA, TONE CABINET ASSEMBLER, urgent care, hospital, or long-term...) When possible be specific @ -No Did you speak to anyone other than the patient for history (EMS, parent, family, police, friend...)? What history was obtained from this source @ -No Did you review nursing and triage notes (agree or disagree)? Why? @ -I reviewed and agree with nursing and triage notes Were old charts reviewed (outside hosp., previous admission, EMS record, old EKG, old radiological studies, urgent care reports/EKG's, long-term records)? Report findings @ -Charts reviewed Differential Diagnosis (chest pain, altered mental status, abdominal pain women, abdominal pain men, vaginal bleeding, weakness, fever, dyspnea, syncope, headache, dizziness, GI bleed, back pain, seizure, CVA, palpatations, mental health, musculoskeletal)? @ -Electrolyte abnormality, UTI, bladder spasms, chronic pain. This list is not all-inclusive. EKG interpreted by me (3pts min.). @ -None done X-rays interpreted by me (1pt min.). @ -None done CT interpreted by me (1pt min.). @ -None done U/S interpreted by me (1pt. min.). @ -None done What testing was considered but not performed or refused? (CT, X-rays, U/S, labs)? Why? @ -None What meds were considered but not given or refused? Why? @ -None Did you discuss the management of the patient with other professionals (professionals i.e. , PA, TONE CABINET ASSEMBLER, lab, RT, psych nurse, social service liaison, supervisor steel division, teacher, public affairs officer, returned case inspector)? Give summary @ -No Was smoking cessation discussed for >3mins.? @ -No Was critical care preformed (if so, how long)? @ -No Were there social determinants of health that impacted care today? How? (Homelessness, low income, unemployed, alcoholism, drug addiction, transportation, low edu. Level, literacy, decrease access to med. care, retirement, rehab)? @ -No Was there de-escalation of care discussed even if they declined (Discuss DNR or withdrawal of care, Hospice)? DNR status @ -No What co-morbidities impacted this encounter? (DM, HTN, Smoking, COPD, CAD, Can cer, CVA, ARF, Chemo, Hep., AIDS, mental health diagnosis, sleep apnea, morbid obesity)? @ -None Was patient admitted / discharged? Hospital course, mention meds given and route, prescriptions, significant lab abnormalities, going to OR and other pertinent info. @ -Based on the patient's presentation and physical exam, I do believe she may have a UTI or bladder spasms. Symptoms are acute on chronic. Patient's laboratory studies were already obtained and remarkable for a normocytic anemia with hemoglobin of 8.9. Patient states she is a chronic history of anemia. No symptoms of anemia at this time. Denies any hematemesis or blood in her stool. No other source of bleeding. Remainder the patient's labs remarkable for possible UTI with positive nitrites. Vital signs within acceptable limits. Discussed results of the patient. She is understanding. She'll like to go home at this time. I believe is reasonable. She'll be started on antibiotics as well as analgesia medications. She was in agreement this plan. Patient's anemia per patient is stable however with her recent lab draw as she was not as low she is now. No obvious source of bleeding. Patient is not concerned regarding her anemia however I recommended she obtain repeat labs within the next week to evaluate her hemoglobin. She was in agreement this plan. She will follow-up with Her PCP. I will provide the patient with a prescription for Bactrim. I instructed the patient to follow up with their PCP in the next 1-3 day. I explained that the patient should return to the emergency department if they experience any worsening symptoms. Strict return precautions were discussed with the patient. The patient expressed understanding of these instructions. I answered all questions that the patient had. The patient was discharged home in good condition with their prescriptions and follow up information. Undiagnosed new problem with uncertain prognosis? @ -No Drug Therapy requiring intensive monitoring for toxicity (Heparin, Nitro, Insulin, Cardizem)? @ -No Were any procedures done? @ -No Diagnosis/symptom? @ -UTI, muscle spasms Acute, or Chronic, or Acute on Chronic? @ -Acute Uncomplicated (without systemic symptoms) or Complicated (systemic symptoms)? @ -Complicated Side effects of treatment? @ -No Exacerbation, Progression, or Severe Exacerbation? @ -No Poses a threat to life or bodily function? How? (Chest pain, [place], [place], pneumonia, PE, COPD, DKA, ARF, appy, cholecystitis, CVA, Diverticulitis, Homicidal, Suicidal, threat to staff... and all critical care pts) @ -No Diagnosis/symptom? @ -Anemia Acute, or Chronic, or Acute on Chronic? @ -Chronic Uncomplicated (without systemic symptoms) or Complicated (systemic symptoms)? @ -Uncomplicated Side effects of treatment? @ -[none] Exacerbation, Progression, or Severe Exacerbation] @ -[no] Poses a threat to life or bodily function? @ -[no] (Bashir Melo) - Lab Data Lab Results 04/26/23 04/26/23 04/26/23 Range/Units 20:55 20:55 20:55 WBC 6.4 (3.8-10.6) k/uL RBC 2.74 L (3.80-5.40) m/uL Hgb 8.9 L D (11.4-16.0) gm/dL Hct 27.0 L (34.0-46.0) % MCV 98.3 (80.0-100.0) fL MCH 32.5 (25.0-35.0) pg MCHC 33.0 (31.0-37.0) g/dL RDW 13.5 (11.5-15.5) % Plt Count 366 (150-450) k/uL MPV 8.1 Neutrophils % 61 % Lymphocytes % 30 % Monocytes % 5 % Eosinophils % 2 % Basophils % 0 % Neutrophils # 3.9 (1.3-7.7) k/uL Lymphocytes # 1.9 (1.0-4.8) k/uL Monocytes # 0.3 (0-1.0) k/uL Eosinophils # 0.1 (0-0.7) k/uL Basophils # 0.0 (0-0.2) k/uL Sodium 135 L (137-145) mmol/L Potassium 4.2 (3.5-5.1) mmol/L Chloride 108 H (98-107) mmol/L Carbon Dioxide 18 L (22-30) mmol/L Anion Gap 9 mmol/L BUN 16 (7-17) mg/dL Creatinine 0.62 (0.52-1.04) mg/dL Est GFR (CKD-EPI)AfAm >90 (>60 ml/min/1.73 sqM) Est GFR (CKD-EPI)NonAf 90 (>60 ml/min/1.73 sqM) Glucose 74 (74-99) mg/dL Calcium 7.6 L (8.4-10.2) mg/dL Magnesium 1.8 (1.6-2.3) mg/dL Total Bilirubin 0.7 (0.2-1.3) mg/dL AST 34 (14-36) U/L ALT 27 (4-34) U/L Alkaline Phosphatase 26 L (38-126) U/L Total Protein 6.0 L (6.3-8.2) g/dL Albumin 3.5 (3.5-5.0) g/dL Urine Color Dark Brown Urine Appearance Clear (Clear) Urine pH 6.5 (5.0-8.0) Ur Specific [place] 1.009 (1.001-1.035) Urine Protein Negative (Negative) Urine Glucose (UA) Negative (Negative) Urine Ketones Negative (Negative) Urine Blood Negative (Negative) Urine Nitrite Positive H (Negative) Urine Bilirubin 2+ H (Negative) Urine Urobilinogen 4.0 (<2.0) mg/dL Ur Leukocyte Esterase Negative (Negative) Ur Squamous Epith Cells <1 (0-4) /hpf Influenza Type A (PCR) (Not Detectd) Influenza Type B (PCR) (Not Detectd) RSV (PCR) (Not Detectd) SARS-CoV-2 (PCR) (Not Detectd) 04/26/23 Range/Units 20:55 WBC (3.8-10.6) k/uL RBC (3.80-5.40) m/uL Hgb (11.4-16.0) gm/dL Hct (34.0-46.0) % MCV (80.0-100.0) fL MCH (25.0-35.0) pg MCHC (31.0-37.0) g/dL RDW (11.5-15.5) % Plt Count (150-450) k/uL MPV Neutrophils % % Lymphocytes % % Monocytes % % Eosinophils % % Basophils % % Neutrophils # (1.3-7.7) k/uL Lymphocytes # (1.0-4.8) k/uL Monocytes # (0-1.0) k/uL Eosinophils # (0-0.7) k/uL Basophils # (0-0.2) k/uL Sodium (137-145) mmol/L Potassium (3.5-5.1) mmol/L Chloride (98-107) mmol/L Carbon Dioxide (22-30) mmol/L Anion Gap mmol/L BUN (7-17) mg/dL Creatinine (0.52-1.04) mg/dL Est GFR (CKD-EPI)AfAm (>60 ml/min/1.73 sqM) Est GFR (CKD-EPI)NonAf (>60 ml/min/1.73 sqM) Glucose (74-99) mg/dL Calcium (8.4-10.2) mg/dL Magnesium (1.6-2.3) mg/dL Total Bilirubin (0.2-1.3) mg/dL AST (14-36) U/L ALT (4-34) U/L Alkaline Phosphatase (38-126) U/L Total Protein (6.3-8.2) g/dL Albumin (3.5-5.0) g/dL Urine Color Urine Appearance (Clear) Urine pH (5.0-8.0) Ur Specific [place] (1.001-1.035) Urine Protein (Negative) Urine Glucose (UA) (Negative) Urine Ketones (Negative) Urine Blood (Negative) Urine Nitrite (Negative) Urine Bilirubin (Negative) Urine Urobilinogen (<2.0) mg/dL Ur Leukocyte Esterase (Negative) Ur Squamous Epith Cells (0-4) /hpf Influenza Type A (PCR) Not Detected (Not Detectd) Influenza Type B (PCR) Not Detected (Not Detectd) RSV (PCR) Not Detected (Not Detectd) SARS-CoV-2 (PCR) Not Detected (Not Detectd) Disposition <Eyad Craven - Last Filed: 04/26/23 20:07> Is patient prescribed a controlled substance at d/c from ED?: No Time of Disposition: 22:48 <Bashir Melo - Last Filed: 04/27/23 06:31> Clinical Impression: UTI (urinary tract infection), Bladder spasms, Anemia Disposition: HOME SELF-CARE Condition: Good Instructions (If sedation given, give patient instructions): Urinary Tract Infection in Women (ED) Prescriptions: Sulfamethox-Tmp 800-160Mg [Bactrim DS 800-160 mg] 1 tab PO Q12HR 7 Days #14 tab Referrals: Best Blanton DO [Primary Care Provider] - 1-2 days
[2023-04-26 21:29] LABS: Appearance,Urine Clear (Clear); Basophils % (A) 0 %; Bilirubin,Urine 2+ (Negative); Blood,Urine Negative (Negative); Color,Urine Dark Brown; Eosinophils # (A) 0.1 k/uL (0-0.7); Eosinophils % (A) 2 %; Glucose,Urine (UA) Negative (Negative); Ketones,Urine Negative (Negative); Leukocyte Esterase,Urine Negative (Negative); Lymphocytes # (A) 1.9 k/uL (1.0-4.8); Lymphocytes % (A) 30 %; MCH 32.5 pg (25.0-35.0); MCV 98.3 fL (80.0-100.0); Mean Platelet Volume 8.1; Monocytes # (A) 0.3 k/uL (0-1.0); Monocytes % (A) 5 %; Neutrophils # (A) 3.9 k/uL (1.3-7.7); Neutrophils % (A) 61 %; Nitrite,Urine Positive (Negative); PH, Urine 6.5 (5.0-8.0); Platelet Count 366 k/uL (150-450); Protein,Urine Negative (Negative); RBC 2.74 m/uL (3.80-5.40); RDW 13.5 % (11.5-15.5); Specific Gravity,Urine 1.009 (1.001-1.035); Squamous Epithelial Cell,Urine <1 /hpf (0-4); WBC 6.4 k/uL (3.8-10.6)
[2023-04-26 21:49] LABS: ALT 27 U/L (4-34); African American GFR (CKD) >90 (>60 ml/min/1.73 sqM); Albumin 3.5 g/dL (3.5-5.0); Anion Gap 9 mmol/L; Blood Urea Nitrogen 16 mg/dL (7-17); Calcium 7.6 mg/dL (8.4-10.2); Carbon Dioxide 18 mmol/L (22-30); Chloride 108 mmol/L (98-107); Glucose 74 mg/dL (74-99); Non-African American GFR(CKD) 90 (>60 ml/min/1.73 sqM); Sodium 135 mmol/L (137-145); Total Bilirubin 0.7 mg/dL (0.2-1.3)
[2023-04-26 22:00] LABS: HGB 8.9 gm/dL (11.4-16.0)
[2023-04-26 22:11] LABS: AST 34 U/L (14-36); Alkaline Phosphatase 26 U/L (38-126); Magnesium 1.8 mg/dL (1.6-2.3); Potassium 4.2 mmol/L (3.5-5.1)
[2023-04-26] MEDS ORDERED: diphenhydrAMINE 25 MG CAP PO STA ×2 (22:44→23:04)
[2023-04-26] MEDS ORDERED: IBUPROFEN 800 MG TAB PO STA (22:44)
[2023-04-26] MEDS ORDERED: SULFAMETHOX-TMP 800-160MG 1 EACH TAB PO STA (22:44)
[2023-04-26] MEDS ORDERED: HYDROcodone/APAP 5-325MG 1 EACH TAB PO STA (22:48)
[2023-04-26 23:44] VITALS: BP 128/64; PULSE 60; TEMP 98.2
== END 2023-04-26 23:35 | disposition home or self-care (01) ==
LOC: EC 18:13
DX: D64.9 Anemia, unspecified (principal); N39.0 Urinary tract infection, site not specified; N32.89 Other specified disorders of bladder; J44.9 Chronic obstructive pulmonary disease, unspecified; F17.200 Nicotine dependence, unspecified, uncomplicated; F12.90 Cannabis use, unspecified, uncomplicated; Z79.82 Long term (current) use of aspirin; Z79.899 Other long term (current) drug therapy; Z20.822 Contact with and (suspected) exposure to COVID-19
CPT/HCPCS: 36415; 80053; 81001; 83735; 85025; 87636; 99284

== ENCOUNTER 2023-05-14 13:37 | Emergency (ER) | payer MEDICARE ==
[2023-05-14 14:01] VITALS: BP 166/71; PULSE 74; RESP 18; TEMP 97.4
[2023-05-14 14:30] LABS: Appearance,Urine Clear (Clear); Bilirubin,Urine Negative (Negative); Blood,Urine Negative (Negative); Color,Urine Dark Yellow; Glucose,Urine (UA) Negative (Negative); Hyaline Casts,Urine 1 /lpf (0-2); Ketones,Urine Negative (Negative); Leukocyte Esterase,Urine Negative (Negative); Mucus,Urine Rare /hpf; Nitrite,Urine Positive (Negative); PH, Urine 6.5 (5.0-8.0); Protein,Urine Negative (Negative); RBC,Urine <1 /hpf (0-5); Specific Gravity,Urine 1.009 (1.001-1.035); Urobilinogen,Urine <2.0 mg/dL (<2.0); WBC,Urine <1 /hpf (0-5)
[2023-05-14] MEDS ORDERED: KETOROLAC 15 MG/ML 1 ML VIAL IM STA (15:30)
--- NOTE | 2023-05-14 15:38 | ED ---
General Adult HPI - General Chief complaint: Urogenital Stated complaint: uti bladder spasms Time Seen by Provider: 05/14/23 15:05 Source: patient, RN notes reviewed Mode of arrival: ambulatory Limitations: no limitations - History of Present Illness Initial comments: 73-year-old female presents to the emergency department for evaluation of possible urinary tract infection. Patient has a history of recurrent UTIs. She states that she was last on antibiotics and finished a course of antibiotics one week ago. She states that she was on Macrobid at that time. She states that her symptoms improved but have come back over the last 1-2 days. She admits to urinary frequency, dysuria. Denies hematuria. Denies fever, chills. Denies nausea, vomiting. She states that she has not been able to get in to see urology for financial reasons but has been recommended to see them. - Related Data Home Medications Medication Instructions Recorded Confirmed Multivitamins, Thera [Multivitamin 1 tab PO HS 08/13/20 02/15/23 (formulary)] Albuterol Sulfate [Ventolin HFA] 2 puff INHALATION RT-Q6H PRN 08/04/22 02/15/23 Calcium Carbonate/Vitamin D3 1 tab PO HS 08/04/22 02/15/23 [Calcium 600-Vit D3 5 Mcg (200 Iu)] Pregabalin [Lyrica] 50 mg PO QID 08/04/22 02/15/23 oxyCODONE-APAP 7.5-325MG [Percocet 1 tab PO TID 08/04/22 02/15/23 7.5-325 mg] lisinopriL [Zestril] 5 mg PO HS 02/15/23 02/15/23 Aspirin 81 mg PO DAILY 02/16/23 02/16/23 Previous Rx's Medication Instructions Recorded Nicotine 14Mg/24Hr Patch [Habitrol] 1 patch TRANSDERM DAILY #30 patch 02/16/23 Sulfamethox-Tmp 800-160Mg [Bactrim 1 tab PO Q12HR 7 Days #14 tab 04/26/23 DS 800-160 mg] Cephalexin [Keflex] 500 mg PO Q12HR 10 Days #20 cap 05/14/23 Allergies Allergy/AdvReac Type Severity Reaction Status Date / Time No Known Allergies Allergy Verified 03/11/23 14:02 Review of Systems ROS Statement: Those systems with pertinent positive or pertinent negative responses have been documented in the HPI. ROS Other: All systems not noted in ROS Statement are negative. Past Medical History Past Medical History: Cancer, COPD, Fibromyalgia, Musculoskeletal Disorder, Syncope Additional Past Medical History / Comment(s): Current skin cancer on nose, hx stage 3 colon cancer and stage 4 lung cancer, scoliosis and degenerative disc disease with bulging discs in back, chronic pain. Hx broken neck that healed on it's own. 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 sinus sx x2. chemo port removed. left breast tumor bx Past Anesthesia/Blood Transfusion Reactions: No Reported Reaction Past Psychological History: No Psychological Hx Reported Smoking Status: Current every day smoker Past Alcohol Use History: Occasional Past Drug Use History: Marijuana - Past Family History Father Family Medical History: Cancer Additional Family Medical History / Comment(s): Leukemia Brother(s) Family Medical History: Cancer Additional Family Medical History / Comment(s): Colon cancer General Exam Limitations: no limitations General appearance: alert, in no apparent distress Head exam: Present: atraumatic, normocephalic, normal inspection Eye exam: Present: normal appearance, PERRL, EOMI. Absent: scleral icterus, conjunctival injection, periorbital swelling ENT exam: Present: normal exam, mucous membranes moist Neck exam: Present: normal inspection. Absent: tenderness, meningismus, lymphadenopathy Respiratory exam: Present: normal lung sounds bilaterally. Absent: respiratory distress, wheezes, rales, rhonchi, stridor Cardiovascular Exam: Present: regular rate, normal rhythm, normal heart sounds. Absent: systolic murmur, diastolic murmur, rubs, gallop, clicks GI/Abdominal exam: Present: soft, normal bowel sounds. Absent: distended, tenderness, guarding, rebound, rigid Extremities exam: Present: normal inspection, full ROM, normal capillary refill. Absent: tenderness, pedal edema, joint swelling, calf tenderness Back exam: Present: normal inspection. Absent: CVA tenderness (R), CVA tenderness (L) Neurological exam: Present: alert, oriented X3 Psychiatric exam: Present: normal affect, normal mood Skin exam: Present: warm, dry, intact, normal color. Absent: rash Course Vital Signs 05/14/23 13:44 Temperature 97.4 F L Pulse Rate 74 Respiratory 18 Rate Blood Pressure 166/71 O2 Sat by Pulse 93 L Oximetry Medical Decision Making - Medical Decision Making Was pt. sent in by a medical professional or institution (, ADRIANNA, TRUST MANAGER, urgent care, hospital, or longterm...) When possible be specific @ -No Did you speak to anyone other than the patient for history (EMS, parent, family, police, friend...)? What history was obtained from this source @ -No Did you review nursing and triage notes (agree or disagree)? Why? @ -I reviewed and agree with nursing and triage notes Were old charts reviewed (outside hosp., previous admission, EMS record, old EK G, old radiological studies, urgent care reports/EKG's, longterm records)? Report findings @ -No old charts were reviewed Differential Diagnosis (chest pain, altered mental status, abdominal pain women, abdominal pain men, vaginal bleeding, weakness, fever, dyspnea, syncope, headache, dizziness, GI bleed, back pain, seizure, CVA, palpatations, mental health, musculoskeletal)? @ -Urinary tract infection, pyelonephritis, nephrolithiasis, this list is not all-inclusive EKG interpreted by me (3pts min.). @ -None X-rays interpreted by me (1pt min.). @ -None done CT interpreted by me (1pt min.). @ -None done U/S interpreted by me (1pt. min.). @ -None done What testing was considered but not performed or refused? (CT, X-rays, U/S, labs)? Why? @ -None What meds were considered but not given or refused? Why? @ -None Did you discuss the management of the patient with other professionals (professionals i.e. ADRIANNA Dacosta, TRUST MANAGER, lab, RT, psych nurse, social science instructor, software maintenance engineer, teacher, sanitation officer, telehealth case manager)? Give summary @ -No Was smoking cessation discussed for >3mins.? @ -No Was critical care preformed (if so, how long)? @ -No Were there social determinants of health that impacted care today? How? (Homelessness, low income, unemployed, alcoholism, drug addiction, transportation, low edu. Level, literacy, decrease access to med. care, senior care, rehab)? @ -No Was there de-escalation of care discussed even if they declined (Discuss DNR or withdrawal of care, Hospice)? DNR status @ -No What co-morbidities impacted this encounter? (DM, HTN, Smoking, COPD, CAD, Cancer, CVA, ARF, Chemo, Hep., AIDS, mental health diagnosis, sleep apnea, morbid obesity)? @ -None Was patient admitted / discharged? Hospital course, mention meds given and route, prescriptions, significant lab abnormalities, going to OR and other pertinent info. @ -Discharged. Patient presented to the emergency department for urinary frequency, dysuria 1-2 days. She has a history of recurrent urinary tract infections. She recently had laboratory studies and a computed tomography scan at our facility within the past month. UA obtained today is positive for nitrate, negative leukocyte esterase. Patient will be treated for urinary tract infection and urine will be sent for culture. Advised patient that she should follow-up with urology. Patient initially agreeable with discharge plan. Patient stable at time of discharge. Case discussed with Dr. Barajas Undiagnosed new problem with uncertain prognosis? @ -No Drug Therapy requiring intensive monitoring for toxicity (Heparin, Nitro, Insulin, Cardizem)? @ -No Were any procedures done? @ -No Diagnosis/symptom? @ -UTI Acute, or Chronic, or Acute on Chronic? @ -Acute Uncomplicated (without systemic symptoms) or Complicated (systemic symptoms)? @ -uncomplicated Side effects of treatment? @ -No Exacerbation, Progression, or Severe Exacerbation? @ -No Poses a threat to life or bodily function? How? (Chest pain, [place], [place], pneumonia, PE, COPD, DKA, ARF, appy, cholecystitis, CVA, Diverticulitis, Homicidal, Suicidal, threat to staff... and all critical care pts) @ -No - Lab Data Lab Results 05/14/23 Range/Units 13:12 Urine Color Dark Yellow Urine Appearance Clear (Clear) Urine pH 6.5 (5.0-8.0) Ur Specific [place] 1.009 (1.001-1.035) Urine Protein Negative (Negative) Urine Glucose (UA) Negative (Negative) Urine Ketones Negative (Negative) Urine Blood Negative (Negative) Urine Nitrite Positive H (Negative) Urine Bilirubin Negative (Negative) Urine Urobilinogen <2.0 (<2.0) mg/dL Ur Leukocyte Esterase Negative (Negative) Urine RBC <1 (0-5) /hpf Urine WBC <1 (0-5) /hpf Hyaline Casts 1 (0-2) /lpf Urine Mucus Rare H (None) /hpf Disposition Clinical Impression: UTI (urinary tract infection) Disposition: HOME SELF-CARE Condition: Stable Instructions (If sedation given, give patient instructions): Urinary Tract Infection in Women (ED) Additional Instructions: Please olive picker antibiotics and take to completion. Follow up with your primary care provider. Return to the emergency department for new or worsening symptoms. Prescriptions: Cephalexin [Keflex] 500 mg PO Q12HR 10 Days #20 cap Is patient prescribed a controlled substance at d/c from ED?: No Referrals: Best Blanton DO [Primary Care Provider] - 1-2 days Rafael Pina MD [STAFF PHYSICIAN] - 1-2 days
[2023-05-14] MEDS ORDERED: HYDROcodone/APAP 5-325MG 1 EACH TAB PO STA (16:18)
[2023-05-14] MEDS ORDERED: ACET/COD 300 MG/30 MG STARTER PACK 6 TAB BTL PO STA (16:30)
[2023-05-14] MEDS ORDERED: CEPHALEXIN 500 MG CAP PO STA (16:34)
== END 2023-05-14 19:18 | disposition home or self-care (01) ==
LOC: EC 13:37
DX: N39.0 Urinary tract infection, site not specified (principal); J44.9 Chronic obstructive pulmonary disease, unspecified; F12.90 Cannabis use, unspecified, uncomplicated; F17.200 Nicotine dependence, unspecified, uncomplicated; Z79.82 Long term (current) use of aspirin; Z79.899 Other long term (current) drug therapy
CPT/HCPCS: 81001; 99283; 96372; J1885

== ENCOUNTER 2023-07-05 12:33 | Emergency (ER) | payer MEDICARE ==
[2023-07-05] MEDS: HYDROmorphone 1 MG/ML 1 ML SYRINGE IM STA ×2 (13:39→15:13)
[2023-07-05 14:07] LABS: Appearance,Urine Clear (Clear); Budding Yeast,Urine Few /hpf; Color,Urine Red; RBC,Urine <1 /hpf (0-5); WBC,Urine 1 /hpf (0-5)
--- NOTE | 2023-07-05 14:39 | ED ---
Female Urogenital HPI - General Chief complaint: Urogenital Stated complaint: UTI, bladder spasms Time Seen by Provider: 07/05/23 12:55 Source: patient, RN notes reviewed Mode of arrival: ambulatory Limitations: no limitations - History of Present Illness Initial comments: This is a 73-year-old female who presents to the emergency department for suprapubic pain, bladder spasms, and burning with urination. She is taking Vesicare for overactive bladder, and has problems with urinary symptoms regardless. However, they got much worse yesterday and she is concerned that she may have an infection. States that this feels like prior episodes of UTIs. Denies any fevers or chills. She is taking over the counter AZO. MD Complaint: dysuria, pelvic pain - Related Data Home Medications Medication Instructions Recorded Confirmed Multivitamins, Thera [Multivitamin 1 tab PO HS 08/13/20 02/15/23 (formulary)] Albuterol Sulfate [Ventolin HFA] 2 puff INHALATION RT-Q6H PRN 08/04/22 02/15/23 Calcium Carbonate/Vitamin D3 1 tab PO HS 08/04/22 02/15/23 [Calcium 600-Vit D3 5 Mcg (200 Iu)] Pregabalin [Lyrica] 50 mg PO QID 08/04/22 02/15/23 oxyCODONE-APAP 7.5-325MG [Percocet 1 tab PO TID 08/04/22 02/15/23 7.5-325 mg] lisinopriL [Zestril] 5 mg PO HS 02/15/23 02/15/23 Aspirin 81 mg PO DAILY 02/16/23 02/16/23 Previous Rx's Medication Instructions Recorded Nicotine 14Mg/24Hr Patch [Habitrol] 1 patch TRANSDERM DAILY #30 patch 02/16/23 Sulfamethox-Tmp 800-160Mg [Bactrim 1 tab PO Q12HR 7 Days #14 tab 04/26/23 DS 800-160 mg] Cephalexin [Keflex] 500 mg PO Q12HR 10 Days #20 cap 05/14/23 cefUROXime axetiL [Ceftin] 500 mg PO BID 7 Days #14 tab 07/05/23 Allergies Allergy/AdvReac Type Severity Reaction Status Date / Time No Known Allergies Allergy Verified 07/05/23 12:54 Review of Systems ROS Statement: Those systems with pertinent positive or pertinent negative responses have been documented in the HPI. ROS Other: All systems not noted in ROS Statement are negative. Past Medical History Past Medical History: Cancer, COPD, Fibromyalgia, Musculoskeletal Disorder, Syncope Additional Past Medical History / Comment(s): Current skin cancer on nose, hx stage 3 colon cancer and stage 4 lung cancer, scoliosis and degenerative disc disease with bulging discs in back, chronic pain. Hx broken neck that healed on it's own. 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 sinus sx x2. chemo port removed. left breast tumor bx Past Anesthesia/Blood Transfusion Reactions: No Reported Reaction Past Psychological History: No Psychological Hx Reported Smoking Status: Current every day smoker Past Alcohol Use History: Occasional Past Drug Use History: Marijuana - Past Family History Father Family Medical History: Cancer Additional Family Medical History / Comment(s): Leukemia Brother(s) Family Medical History: Cancer Additional Family Medical History / Comment(s): Colon cancer General Exam Limitations: no limitations General appearance: alert, in distress Head exam: Present: atraumatic, normocephalic, normal inspection Respiratory exam: Present: normal lung sounds bilaterally. Absent: respiratory distress, wheezes, rales, rhonchi, stridor Cardiovascular Exam: Present: regular rate, normal rhythm, normal heart sounds. Absent: systolic murmur, diastolic murmur, rubs, gallop, clicks GI/Abdominal exam: Present: soft, normal bowel sounds. Absent: distended, tenderness, guarding, rebound, rigid Neurological exam: Present: alert, oriented X3, CN II-XII intact Psychiatric exam: Present: normal affect, normal mood Skin exam: Present: warm, dry, intact, normal color. Absent: rash Course Vital Signs 07/05/23 07/05/23 12:48 16:35 Temperature 98.0 F 98.2 F Pulse Rate 46 L 64 Respiratory 17 18 Rate Blood Pressure 118/74 159/75 O2 Sat by Pulse 94 L 97 Oximetry Medical Decision Making - Medical Decision Making This is a 73-year-old female who presents to the emergency department for urinary symptoms. Was pt. sent in by a medical professional or institution? @ -No Did you speak to anyone other than the patient for history? @ -No Did you review nursing and triage notes? @ -Yes, and I agree, it is accurate with regards to the patient's symptoms. Were old charts reviewed? @ -No Differential Diagnosis? @ -Differential Urinary Symptoms: UTI, pyelonephritis, STI, OAB, this is not meant to be an all-inclusive list. EKG interpreted by me (3pts min.)? @ -Not obtained X-rays interpreted by me (1pt min.)? @ -Not obtained CT interpreted by me (1pt min.)? @ -Not obtained U/S interpreted by me (1pt. min.)? @ -Not obtained What testing was considered but not performed? (CT, X-rays, U/S, labs)? Why? @ -None What meds were considered but not given? Why? @ -None Did you discuss the management of the patient with other professionals? @ -No Did you reconcile home meds? @ -No Was smoking cessation discussed for >3mins.? @ -I discussed smoking cessation for greater than 3 minutes. The risk of smoking were discussed with the patient including but not limited to risks of cancer, stroke, coronary artery disease and COPD. Also discussed with patient were multiple methods of quitting smoking. Lastly we discussed the financial cost of smoking. Was critical care preformed (if so, how long)? @ -No Were there social determinants of health that impacted care today? How? (Homelessness, low income, unemployed, alcoholism, drug addiction, transportation, low edu. Level, literacy, decrease access to med. care, fpc, rehab)? @ -No Was there de-escalation of care discussed even if they declined? (Discuss DNR or withdrawal of care, Hospice)? @ -No What co-morbidities impacted this encounter? (DM, HTN, Smoking, COPD, CAD, Cancer, CVA, Hep., AIDS, mental health diagnosis, sleep apnea, morbid obesity)? @ -OAB Was patient admitted / discharged? @ -Discharged. Urinalysis was obtained, however she had taken AZO prior to arrival and the urinalysis could not be completed. Urine was sent for culture. Given the level of her discomfort and symptoms feeling similar to prior UTIs, will start the patient on treatment. Ceftriaxone administered in the emergency department and rx for Ceftin was provided with doing instructions reviewed. Otherwise advised follow up with her PCP. Undiagnosed new problem with uncertain prognosis? @ -None Drug Therapy requiring intensive monitoring for toxicity (Heparin, Nitro, Insulin, Cardizem)? @ -None Were any procedures done? @ -None Diagnosis/symptom? @ -UTI Acute, or Chronic, or Acute on Chronic? @ -Acute Uncomplicated (without systemic symptoms) or Complicated (systemic symptoms)? @ -Uncomplicated Side effects of treatment? @ -None Exacerbation, Progression, or Severe Exacerbation] @ -Not applicable Poses a threat to life or bodily function? @ -No Return precautions reviewed in depth, the patient is instructed to return to the emergency department with any new, worsening, or concerning symptoms. Patient verbalized understanding. This case was discussed in detail with the attending ED physician, Dr. Fernandes. Presentation, findings, and treatment plan discussed in detail as well. - Lab Data Lab Results 07/05/23 Range/Units 13:24 Urine Color Red Urine Appearance Clear (Clear) Urine RBC <1 (0-5) /hpf Urine WBC 1 (0-5) /hpf Urine Yeast (Budding) Few H (None) /hpf Disposition Clinical Impression: Urinary tract infection, Bladder spasms Disposition: HOME SELF-CARE Instructions (If sedation given, give patient instructions): Urinary Tract Infection in Women (ED) Additional Instructions: Return to the emergency department with any new, worsening, or concerning symptoms. Take the antibiotic as prescribed for 7 days. Follow up with your primary care provider in 1-2 days. Prescriptions: cefUROXime axetiL [Ceftin] 500 mg PO BID 7 Days #14 tab Is patient prescribed a controlled substance at d/c from ED?: No Referrals: Best Blanton DO [Primary Care Provider] - 1-2 days Time of Disposition: 16:00
[2023-07-05] MEDS: ORPHENADRINE 30 MG/ML 2 ML VIAL IM STA (15:13)
[2023-07-05] MEDS: cefTRIAXone 1,000 MG VIAL (IM USE) IM STA (15:14)
[2023-07-05] MEDS: HYDROmorphone 1 MG/ML 1 ML SYRINGE IVP STA (15:14)
[2023-07-05] MEDS: ORPHENADRINE 30 MG/ML 2 ML VIAL IVP STA (15:17)
[2023-07-05] MEDS: cefTRIAXone IN SWFI 1,000 MG/10 ML SYRINGE IVP STA (15:25)
[2023-07-05] MEDS: ACET/COD 300 MG/30 MG STARTER PACK 6 TAB BTL PO STA (16:33)
[2023-07-05] MEDS: IBUPROFEN 600 MG STARTER PACK 4 TAB BTL PO STA (16:33)
[2023-07-05 17:03] VITALS: BP 159/75; PULSE 64; RESP 18; TEMP 98.2
== END 2023-07-05 16:35 | disposition home or self-care (01) ==
LOC: EC 12:33
DX: N39.0 Urinary tract infection, site not specified (principal); N32.89 Other specified disorders of bladder; J44.9 Chronic obstructive pulmonary disease, unspecified; F17.200 Nicotine dependence, unspecified, uncomplicated; F12.90 Cannabis use, unspecified, uncomplicated; Z79.899 Other long term (current) drug therapy
CPT/HCPCS: 81001; 99283; 96374; 96375 ×2; 96372; 99406; J2360; J0696; J1170; 87086

== ENCOUNTER 2023-10-15 13:31 | Emergency (ER) | payer MEDICARE ==
--- NOTE | 2023-10-15 13:38 | ED ---
Back Pain HPI - General Source: patient, RN notes reviewed Mode of arrival: ambulatory Limitations: no limitations <Sarahi Scott - Last Filed: 10/15/23 13:37> <Lanie Madrigal - Last Filed: 10/15/23 19:43> - General Stated Complaint: Back pain Time Seen by Provider: 10/15/23 13:37 - History of Present Illness Initial Comments: Quick note: 73-year-old female presented to the ER with a chief complaint of back pain. Patient reports she has a history of back pain and recently heard a crack and her pain has since exacerbated. She denies saddle paresthesias, bowel or bladder incontinence or fevers. Patient reports pain is not manageable at home. No other complaints. (Sarahi Scott) This is a 73-year-old female presents emergency department chief complaint of back pain. Patient has a history of chronic back pain, spina bifida, and osteoporosis. She states that last week she was picking up boxes when she felt a popping sensation of her lower back. She denies anesthesias, change in bladder or bowel continence. She denies falls or previous surgical history to her back. Taking Tylenol, Motrin, Aleve at home with minimal relief. Patient has a appointment scheduled with pain specialist on 10/23. (Lanie Madrigal) - Related Data Home Medications Medication Instructions Recorded Confirmed Multivitamins, Thera [Multivitamin 1 tab PO HS 08/13/20 02/15/23 (formulary)] Albuterol Sulfate [Ventolin HFA] 2 puff INHALATION RT-Q6H PRN 08/04/22 02/15/23 Calcium Carbonate/Vitamin D3 1 tab PO HS 08/04/22 02/15/23 [Calcium 600-Vit D3 5 Mcg (200 Iu)] Pregabalin [Lyrica] 50 mg PO QID 08/04/22 02/15/23 oxyCODONE-APAP 7.5-325MG [Percocet 1 tab PO TID 08/04/22 02/15/23 7.5-325 mg] lisinopriL [Zestril] 5 mg PO HS 02/15/23 02/15/23 Aspirin 81 mg PO DAILY 02/16/23 02/16/23 Previous Rx's Medication Instructions Recorded Nicotine 14Mg/24Hr Patch [Habitrol] 1 patch TRANSDERM DAILY #30 patch 02/16/23 Sulfamethox-Tmp 800-160Mg [Bactrim 1 tab PO Q12HR 7 Days #14 tab 04/26/23 DS 800-160 mg] Cephalexin [Keflex] 500 mg PO Q12HR 10 Days #20 cap 05/14/23 cefUROXime axetiL [Ceftin] 500 mg PO BID 7 Days #14 tab 07/05/23 HYDROcodone/APAP 10-325MG [[place] 1 tab PO Q6HR PRN 3 Days #12 tab 10/15/23 10-325] Allergies Allergy/AdvReac Type Severity Reaction Status Date / Time No Known Allergies Allergy Verified 10/15/23 14:52 Review of Systems ROS Other: All systems not noted in ROS Statement are negative. <Sarahi Scott - Last Filed: 10/15/23 13:37> ROS Other: All systems not noted in ROS Statement are negative. <Lanie Madrigal - Last Filed: 10/15/23 19:43> ROS Statement: Those systems with pertinent positive or pertinent negative responses have been documented in the HPI. Past Medical History Past Medical History: Cancer, COPD, Fibromyalgia, Musculoskeletal Disorder, Syncope Additional Past Medical History / Comment(s): Current skin cancer on nose, hx stage 3 colon cancer and stage 4 lung cancer, scoliosis and degenerative disc disease with bulging discs in back, chronic pain. Hx broken neck that healed on it's own. 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 sinus sx x2. chemo port removed. left breast tumor bx Past Anesthesia/Blood Transfusion Reactions: No Reported Reaction Past Psychological History: No Psychological Hx Reported Smoking Status: Current every day smoker Past Alcohol Use History: Occasional Past Drug Use History: Marijuana - Past Family History Father Family Medical History: Cancer Additional Family Medical History / Comment(s): Leukemia Brother(s) Family Medical History: Cancer Additional Family Medical History / Comment(s): Colon cancer <Sarahi Scott - Last Filed: 10/15/23 13:37> General Exam <Sarahi Scott - Last Filed: 10/15/23 13:37> General appearance: alert, in no apparent distress Head exam: Present: atraumatic, normocephalic, normal inspection Eye exam: Present: normal appearance, PERRL, EOMI. Absent: scleral icterus, conjunctival injection, periorbital swelling ENT exam: Present: normal exam, mucous membranes moist Neck exam: Present: normal inspection. Absent: tenderness, meningismus, lymphadenopathy Respiratory exam: Present: wheezes, decreased breath sounds (left upper lung field, known partial removal of lung). Absent: normal lung sounds bilaterally, respiratory distress, rales, rhonchi, stridor Cardiovascular Exam: Present: regular rate, normal rhythm, normal heart sounds. Absent: systolic murmur, diastolic murmur, rubs, gallop, clicks GI/Abdominal exam: Present: soft, normal bowel sounds. Absent: distended, tenderness, guarding, rebound, rigid Extremities exam: Present: normal inspection, full ROM, normal capillary refill. Absent: tenderness, pedal edema, joint swelling, calf tenderness Back exam: Present: normal inspection, tenderness (most notable over thoracic and lumbar spine), paraspinal tenderness (lumbar spine). Absent: CVA tenderness (R), CVA tenderness (L) Neurological exam: Present: alert, oriented X3, CN II-XII intact Psychiatric exam: Present: normal affect, normal mood Skin exam: Present: warm, dry, intact, normal color. Absent: rash <Lanie Madrigal - Last Filed: 10/15/23 19:43> - General Exam Comments Initial Comments: Visual Physical Exam Vital signs reviewed General: Well-appearing, nontoxic, no acute distress. Head: Normocephalic, atraumatic Eyes: PERRLA, EOMI ENT: Airway patent Chest: Nonlabored breathing Skin: No visual rash, normal skin tone Neuro: Alert and oriented 3 Musculoskeletal: No gross abnormalities (Sarahi Scott) Course Vital Signs 10/15/23 10/15/23 14:49 17:36 Temperature 98.8 F 97.9 F Pulse Rate 92 86 Respiratory 20 18 Rate Blood Pressure 129/80 136/78 O2 Sat by Pulse 97 97 Oximetry Medical Decision Making <Sarahi Scott - Last Filed: 10/15/23 13:37> <Lanie Madrigal - Last Filed: 10/15/23 19:43> - Medical Decision Making I performed the quick note portion of this chart. Electronically signed by Sarahi Scott PA-C (Sarahi Scott) Was pt. sent in by a medical professional or institution (ADRIANNA Dacosta, TECHNOLOGY ANALYST, urgent care, hospital, or long term...) When possible be specific @ -No Did you speak to anyone other than the patient for history (EMS, parent, family, police, friend...)? What history was obtained from this source @ -No Did you review nursing and triage notes (agree or disagree)? Why? @ -I reviewed and agree with nursing and triage notes Were old charts reviewed (outside hosp., previous admission, EMS record, old EKG, old radiological studies, urgent care reports/EKG's, long term records)? Report findings @ -No old charts were reviewed Differential Diagnosis (chest pain, altered mental status, abdominal pain women, abdominal pain men, vaginal bleeding, weakness, fever, dyspnea, syncope, headache, dizziness, GI bleed, back pain, seizure, CVA, palpatations, mental health, musculoskeletal)? @ -Differential Musculoskeletal Muscular strain, contusion, ligament sprain, fracture, arthritis, septic arthritis, bursitis, cellulitis, muscle spasm, nerve compression, DVT, arterial occlusion, herpes zoster, electrolyte abnormality, tumor.... This is not meant to be in all inclusive list EKG interpreted by me (3pts min.). @ -None X-rays interpreted by me (1pt min.). @ -X-ray of the lumbar spine reveals spina bifida occulta at S1 with vertebral sidebending towards the right. No evidence of disc loss or vertebral body fracture. CT interpreted by me (1pt min.). @ -None done U/S interpreted by me (1pt. min.). @ -None done What testing was considered but not performed or refused? (CT, X-rays, U/S, labs)? Why? @ -None What meds were considered but not given or refused? Why? @ -None Did you discuss the management of the patient with other professionals (professionals i.e. ADRIANNA Dacosta, TECHNOLOGY ANALYST, lab, RT, psych nurse, delinquency prevention social worker, dental sales representative, teacher, hospital security officer, telephonic nurse case manager)? Give summary @ -No Was smoking cessation discussed for >3mins.? @ -Yes, discussion with patient at bedside the effects of nicotine use. Patient is not interested in cutting back at this time. Was critical care preformed (if so, how long)? @ -No Were there social determinants of health that impacted care today? How? (Homelessness, low income, unemployed, alcoholism, drug addiction, transportation, low edu. Level, literacy, decrease access to med. care, custodial, rehab)? @ -No Was there de-escalation of care discussed even if they declined (Discuss DNR or withdrawal of care, Hospice)? DNR status @ -No What co-morbidities impacted this encounter? (DM, HTN, Smoking, COPD, CAD, Cancer, CVA, ARF, Chemo, Hep., AIDS, mental health diagnosis, sleep apnea, morbid obesity)? @ -smoking, COPD, history of cancer Was patient admitted / discharged? Hospital course, mention meds given and route, prescriptions, significant lab abnormalities, going to OR and other pertinent info. @ -33-year-old female with back pain. On examination there is no notable deformities of the back. Pain is exacerbated with movement. No neurological deficits noted. Nonconcerning for acute process. Patient provided with pain medication. She will be discharged home with pain medication as needed. Patient has appointment scheduled with pain management on 10/23. All questions answered at bedside. Patient is stable for discharge. Strict return parameters discussed. Case discussed with Dr. Fernandes Undiagnosed new problem with uncertain prognosis? @ -No Drug Therapy requiring intensive monitoring for toxicity (Heparin, Nitro, Insulin, Cardizem)? @ -No Were any procedures done? @ -No Diagnosis/symptom? @ -Chronic back pain Acute, or Chronic, or Acute on Chronic? @ -Acute Uncomplicated (without systemic symptoms) or Complicated (systemic symptoms)? @ -Uncomplicated Side effects of treatment? @ -No Exacerbation, Progression, or Severe Exacerbation? @ -No Poses a threat to life or bodily function? How? (Chest pain, [place], [place], pneumonia, PE, COPD, DKA, ARF, appy, cholecystitis, CVA, Diverticulitis, Homicidal, Suicidal, threat to staff... and all critical care pts) @ -No (StiLanie cisneros) Disposition <Stariha,Sarahi - Last Filed: 10/15/23 13:37> Is patient prescribed a controlled substance at d/c from ED?: Yes When asked, does pt state using other controlled substances?: No If prescribed controlled substance>3 days was MAPS reviewed?: Prescribed <3 Days Time of Disposition: 17:15 <Lanie Madrigal - Last Filed: 10/15/23 19:43> Clinical Impression: Chronic back pain Narrative: Please return to the Emergency Department if symptoms worsen or any other concerns. Follow-up as scheduled with pain management on 10/23 for further evaluation. (Lanie Madrigal) Disposition: HOME SELF-CARE Condition: Good Instructions (If sedation given, give patient instructions): Chronic Back Pain (DC) Prescriptions: HYDROcodone/APAP 10-325MG [[place] 10-325] 1 tab PO Q6HR PRN 3 Days #12 tab PRN Reason: Pain Referrals: Best Blanton DO [Primary Care Provider] - 1-2 days
--- NOTE | 2023-10-15 14:17 | XR ---
EXAMINATION TYPE: XR lumbar spine 2 or 3V DATE OF EXAM: 10/15/2023 COMPARISON: None HISTORY: Pain TECHNIQUE: 3 view lumbar spine FINDINGS: There are 5 lumbar-type vertebral bodies. Pedicles are intact. Side bending towards the rig ht is evident. There is spina bifida occulta at S1. Disc heights appear preserved. Vertebral body hei ghts are preserved. IMPRESSION: 1. Spina bifida occulta S1. Vertebral side bending towards the right.
[2023-10-15] MEDS: HYDROmorphone 0.5 MG/0.5 ML SYRINGE IM STA (17:27)
[2023-10-15 17:53] VITALS: BP 136/78; PULSE 86; RESP 18; TEMP 97.9
== END 2023-10-15 18:07 | disposition home or self-care (01) ==
LOC: EC 13:31
DX: G89.29 Other chronic pain (principal); M54.50 Low back pain, unspecified; J44.9 Chronic obstructive pulmonary disease, unspecified; F17.200 Nicotine dependence, unspecified, uncomplicated
CPT/HCPCS: 72100; 99283; 96372; J1170

== ENCOUNTER 2024-06-21 06:48 | Emergency (ER) | payer MEDICARE ==
[2024-06-21 07:02] VITALS: RESP 18
--- NOTE | 2024-06-21 07:27 | ED ---
General Adult HPI - General Chief complaint: Extremity Problem,Nontraumatic Stated complaint: Leg Swelling Time Seen by Provider: 06/21/24 07:14 Source: patient Mode of arrival: ambulatory Limitations: no limitations - History of Present Illness Initial comments: Patient is a 74-year-old female present to the emergency department with concerns for leg swelling. Onset of symptoms was just the last day or 2. Patient complains of bilateral leg edema with some discomfort. No history of similar symptoms previously. No color change. No dyspnea. - Related Data Home Medications Medication Instructions Recorded Confirmed Multivitamins, Thera [Multivitamin 1 tab PO HS 08/13/20 02/15/23 (formulary)] Albuterol Sulfate [Ventolin HFA] 2 puff INHALATION RT-Q6H PRN 08/04/22 02/15/23 Calcium Carbonate/Vitamin D3 1 tab PO HS 08/04/22 02/15/23 [Calcium 600-Vit D3 5 Mcg (200 Iu)] Pregabalin [Lyrica] 50 mg PO QID 08/04/22 02/15/23 oxyCODONE-APAP 7.5-325MG [Percocet 1 tab PO TID 08/04/22 02/15/23 7.5-325 mg] lisinopriL [Zestril] 5 mg PO HS 02/15/23 02/15/23 Aspirin 81 mg PO DAILY 02/16/23 02/16/23 Previous Rx's Medication Instructions Recorded Nicotine 14Mg/24Hr Patch [Habitrol] 1 patch TRANSDERM DAILY #30 patch 02/16/23 Sulfamethox-Tmp 800-160Mg [Bactrim 1 tab PO Q12HR 7 Days #14 tab 04/26/23 DS 800-160 mg] Cephalexin [Keflex] 500 mg PO Q12HR 10 Days #20 cap 05/14/23 cefuroxime axetiL [Ceftin] 500 mg PO BID 7 Days #14 tab 07/05/23 HYDROcodone/APAP 10-325MG [[place] 1 tab PO Q6HR PRN 3 Days #12 tab 10/15/23 10-325] Allergies Allergy/AdvReac Type Severity Reaction Status Date / Time No Known Allergies Allergy Verified 06/21/24 06:58 Review of Systems ROS Statement: Those systems with pertinent positive or pertinent negative responses have been documented in the HPI. ROS Other: All systems not noted in ROS Statement are negative. Constitutional: Denies: fever Eyes: Denies: eye pain ENT: Denies: ear pain Respiratory: Reports: as per HPI. Denies: cough, dyspnea Cardiovascular: Reports: edema. Denies: chest pain Endocrine: Denies: fatigue Gastrointestinal: Denies: abdominal pain Past Medical History Past Medical History: Cancer, COPD, Fibromyalgia, Musculoskeletal Disorder, Syncope Additional Past Medical History / Comment(s): Current skin cancer on nose, hx stage 3 colon cancer and stage 4 lung cancer, scoliosis and degenerative disc disease with bulging discs in back, chronic pain. Hx broken neck that healed on it's own. 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 sinus sx x2. chemo port removed. left breast tumor bx Past Anesthesia/Blood Transfusion Reactions: No Reported Reaction Past Psychological History: No Psychological Hx Reported Smoking Status: Current every day smoker, Vaper Past Alcohol Use History: Occasional Past Drug Use History: Marijuana - Past Family History Father Family Medical History: Cancer Additional Family Medical History / Comment(s): Leukemia Brother(s) Family Medical History: Cancer Additional Family Medical History / Comment(s): Colon cancer General Exam Limitations: no limitations General appearance: alert, in no apparent distress Head exam: Present: normocephalic Eye exam: Present: normal appearance Neck exam: Present: normal inspection Respiratory exam: Present: normal lung sounds bilaterally Cardiovascular Exam: Present: regular rate, normal rhythm, normal heart sounds Expanded Peripheral pulses: 2+: Dorsalis Pedis (R), Dorsalis Pedis (L) GI/Abdominal exam: Present: soft. Absent: tenderness Extremities exam: Present: calf tenderness (Minimal bilateral), other (Trace bilateral lower extremity edema) Back exam: Present: normal inspection Neurological exam: Present: alert Psychiatric exam: Present: normal affect, normal mood Skin exam: Present: normal color Course Vital Signs 06/21/24 06/21/24 06:58 08:16 Temperature 97.8 F Pulse Rate 71 60 Respiratory 18 18 Rate Blood Pressure 150/58 149/68 O2 Sat by Pulse 94 L 98 Oximetry EKG Findings - EKG Results: EKG: interpreted by ERMD (Borderline intraventricular conduction delay.), sinus rhythm, normal axis, normal ST/T Medical Decision Making - Medical Decision Making Was pt. sent in by a medical professional or institution (, PA, CYLINDER PRESS OPERATOR, urgent care, hospital, or assisted...) When possible be specific @ -No Did you speak to anyone other than the patient for history (EMS, parent, family, police, friend...)? What history was obtained from this source @ -No Did you review nursing and triage notes (agree or disagree)? Why? @ -I reviewed and agree with nursing and triage notes Were old charts reviewed (outside hosp., previous admission, EMS record, old EKG, old radiological studies, urgent care reports/EKG's, assisted records)? Report findings @ -No old charts were reviewed Differential Diagnosis (chest pain, altered mental status, abdominal pain women, abdominal pain men, vaginal bleeding, weakness, fever, dyspnea, syncope, headache, dizziness, GI bleed, back pain, seizure, CVA, palpatations, mental health, musculoskeletal)? @ -Differential Musculoskeletal Muscular strain, contusion, ligament sprain, fracture, arthritis, septic arthritis, bursitis, cellulitis, muscle spasm, nerve compression, DVT, arterial occlusion, herpes zoster, electrolyte abnormality, tumor.... This is not meant to be in all inclusive list EKG interpreted by me (3pts min.). @ -As above X-rays interpreted by me (1pt min.). @ -Chest x-ray shows no acute process CT interpreted by me (1pt min.). @ -None done U/S interpreted by me (1pt. min.). @ -Ultrasound bilateral lower extremities without DVT What testing was considered but not performed or refused? (CT, X-rays, U/S, labs)? Why? @ -None What meds were considered but not given or refused? Why? @ -None Did you discuss the management of the patient with other professionals (professionals i.e. ADRIANNA Dacosta, CYLINDER PRESS OPERATOR, lab, RT, psych nurse, aids social worker, early childhood teacher, teacher, dog license officer supervisor, briefcase sewer)? Give summary @ -No Was smoking cessation discussed for >3mins.? @ -No Was critical care preformed (if so, how long)? @ -No Were there social determinants of health that impacted care today? How? (Homelessness, low income, unemployed, alcoholism, drug addiction, transportation, low edu. Level, literacy, decrease access to med. care, detention, rehab)? @ -No Was there de-escalation of care discussed even if they declined (Discuss DNR or withdrawal of care, Hospice)? DNR status @ -No What co-morbidities impacted this encounter? (DM, HTN, Smoking, COPD, CAD, Cancer, CVA, ARF, Chemo, Hep., AIDS, mental health diagnosis, sleep apnea, morbid obesity)? @ -None Was patient admitted / discharged? Hospital course, mention meds given and route, prescriptions, significant lab abnormalities, going to OR and other pertinent info. @ -Patient presents with concern for leg swelling. On exam there may be minimal leg swelling however overall unremarkable. Evaluation unremarkable. On reevaluation patient states she is complaining more of pain from her neuralgia and request pain medication. Patient was upset at being given Tylenol. Patient will be given Ultram starter pack and recommended close follow-up with her doctor. Undiagnosed new problem with uncertain prognosis? @ -No Drug Therapy requiring intensive monitoring for toxicity (Heparin, Nitro, Insulin, Cardizem)? @ -No Were any procedures done? @ -No Diagnosis/symptom? @ -Leg pain Acute, or Chronic, or Acute on Chronic? @ -Acute on chronic Uncomplicated (without systemic symptoms) or Complicated (systemic symptoms)? @ -Default Side effects of treatment? @ -No Exacerbation, Progression, or Severe Exacerbation? @ -No Poses a threat to life or bodily function? How? (Chest pain, [place], [place], pneumonia, PE, COPD, DKA, ARF, appy, cholecystitis, CVA, Diverticulitis, Homicidal, Suicidal, threat to staff... and all critical care pts) @ -No - Lab Data Result diagrams: 06/21/24 07:39 06/21/24 07:39 Lab Results 06/21/24 06/21/24 06/21/24 Range/Units 07:39 07:39 07:39 WBC 9.1 (3.8-10.6) k/uL RBC 3.97 (3.80-5.40) m/uL Hgb 11.7 (11.4-16.0) gm/dL Hct 35.5 (34.0-46.0) % MCV 89.6 (80.0-100.0) fL MCH 29.6 (25.0-35.0) pg MCHC 33.0 (31.0-37.0) g/dL RDW 14.0 (11.5-15.5) % Plt Count 313 (150-450) k/uL MPV 7.6 Neutrophils % 74 % Lymphocytes % 16 % Monocytes % 6 % Eosinophils % 2 % Basophils % 0 % Neutrophils # 6.7 (1.3-7.7) k/uL Lymphocytes # 1.5 (1.0-4.8) k/uL Monocytes # 0.5 (0-1.0) k/uL Eosinophils # 0.2 (0-0.7) k/uL Basophils # 0.0 (0-0.2) k/uL PT 10.3 (10.0-12.5) sec INR 0.9 (<1.2) APTT 22.8 (22.0-30.0) sec Sodium 136 L (137-145) mmol/L Potassium 4.1 (3.5-5.1) mmol/L Chloride 101 (98-107) mmol/L Carbon Dioxide 27 (22-30) mmol/L Anion Gap 8 mmol/L BUN 25 H (7-17) mg/dL Creatinine 0.69 (0.52-1.04) mg/dL Est GFR (CKD-EPI)AfAm >90 (>60 ml/min/1.73 sqM) Est GFR (CKD-EPI)NonAf 86 (>60 ml/min/1.73 sqM) Glucose 86 (74-99) mg/dL Calcium 8.8 (8.4-10.2) mg/dL Magnesium 1.8 (1.6-2.3) mg/dL Total Bilirubin 0.5 (0.2-1.3) mg/dL AST 28 (14-36) U/L ALT 23 (4-34) U/L Alkaline Phosphatase 46 (38-126) U/L NT-Pro-B Natriuret Pep 31 pg/mL Total Protein 6.5 (6.3-8.2) g/dL Albumin 3.9 (3.5-5.0) g/dL Disposition Clinical Impression: Leg pain Disposition: HOME SELF-CARE Condition: Stable Instructions (If sedation given, give patient instructions): Chronic Pain (ED) Additional Instructions: Please do follow-up with your primary care physician in the next couple of days for recheck. Return for fever, weakness, swelling, difficulty breathing, increased pain, worsening or changing symptoms or other concerns. Is patient prescribed a controlled substance at d/c from ED?: No Referrals: Best Blanton DO [Primary Care Provider] - 1-2 days Time of Disposition: 08:54
[2024-06-21 07:48] LABS: Basophils % (A) 0 %; Eosinophils # (A) 0.2 k/uL (0-0.7); Eosinophils % (A) 2 %; HCT 35.5 % (34.0-46.0); HGB 11.7 gm/dL (11.4-16.0); Lymphocytes # (A) 1.5 k/uL (1.0-4.8); Lymphocytes % (A) 16 %; MCH 29.6 pg (25.0-35.0); MCV 89.6 fL (80.0-100.0); Mean Platelet Volume 7.6; Monocytes # (A) 0.5 k/uL (0-1.0); Monocytes % (A) 6 %; Neutrophils # (A) 6.7 k/uL (1.3-7.7); Neutrophils % (A) 74 %; Platelet Count 313 k/uL (150-450); RBC 3.97 m/uL (3.80-5.40); WBC 9.1 k/uL (3.8-10.6)
[2024-06-21 08:00] LABS: INR 0.9 (<1.2); Partial Thromboplastin Time 22.8 sec (22.0-30.0); Prothrombin Time 10.3 sec (10.0-12.5)
[2024-06-21 08:03] LABS: ALT 23 U/L (4-34); AST 28 U/L (14-36); African American GFR (CKD) >90 (>60 ml/min/1.73 sqM); Albumin 3.9 g/dL (3.5-5.0); Alkaline Phosphatase 46 U/L (38-126); Anion Gap 8 mmol/L; Blood Urea Nitrogen 25 mg/dL (7-17); Calcium 8.8 mg/dL (8.4-10.2); Carbon Dioxide 27 mmol/L (22-30); Chloride 101 mmol/L (98-107); Glucose 86 mg/dL (74-99); Magnesium 1.8 mg/dL (1.6-2.3); Non-African American GFR(CKD) 86 (>60 ml/min/1.73 sqM); Potassium 4.1 mmol/L (3.5-5.1); Sodium 136 mmol/L (137-145); Total Bilirubin 0.5 mg/dL (0.2-1.3); Total Protein 6.5 g/dL (6.3-8.2)
--- NOTE | 2024-06-21 08:06 | XR ---
Chest, 2 view. HISTORY: Edema COMPARISON: 02/15/2023 TECHNIQUE: PA and lateral views the chest are obtained. FINDINGS: The lungs are clear and there is no consolidative or interstitial opacity. There is no pleural effusion or pneumothorax. The heart, pulmonary vasculature, mediastinum and luis appear normal. The osseous structures are intact. IMPRESSION: No significant abnormality seen. No acute cardiopulmonary disease. [facility], , 06/21/2024 8:03 AM
[2024-06-21 08:09] LABS: NT-Pro-B-Type Natriuretic Pept 31 pg/mL
[2024-06-21] MEDS: ACETAMINOPHEN TAB 325 MG TAB PO STA (08:28)
--- NOTE | 2024-06-21 08:44 | US ---
EXAMINATION TYPE: US venous doppler duplex LE BI DATE OF EXAM: 06/21/2024 8:30 AM COMPARISON: 08/13/20 CLINICAL INDICATION: Female, 74 years old with history of edema; Hx current skin cancer, colon cancer with resection, and lung cancer with resection. , Pain TECHNIQUE: The lower extremity deep venous system is examined utilizing real time linear array sonog jaxson with graded compression, color doppler sonography, and spectral doppler. SIDE PERFORMED: Bilateral FINDINGS: VESSELS IMAGED: Common Femoral Vein Deep Femoral Vein Greater Saphenous Vein * Femoral Vein Popliteal Vein Small Saphenous Vein * Proximal Calf Veins (* superficial vessels) Complex fluid area seen within left popliteal fossa Right Leg: Negative for DVT, Color Doppler imaging shows patency of the vessels. Spectral waveforms are within normal limits. Left Leg: Negative for DVT, Color Doppler imaging shows patency of the vessels. Spectral waveforms a re within normal limits. IMPRESSION: 1. No evidence of DVT of the lower extremities from the common femoral veins to the proximal calf vei ns. 2. Probable left knee May's cyst. [facility], Workstation: [email or web address] 06/21/2024 8:41 AM
[2024-06-21] MEDS: traMADol 50 MG STARTER PACK 3 TAB BTL PO STA (09:14)
[2024-06-21] MEDS: FUROSEMIDE 10 MG TAB PO STA (09:16)
[2024-06-21 09:25] VITALS: BP 134/77; PULSE 68; TEMP 97.9
== END 2024-06-21 09:23 | disposition home or self-care (01) ==
LOC: EC 06:48
DX: M79.605 Pain in left leg (principal); M79.604 Pain in right leg; F17.290 Nicotine dependence, other tobacco product, uncomplicated
CPT/HCPCS: 36415; 71046; 80053; 83735; 83880; 85025; 85610; 85730; 93005; 93970; 99284